=== PATIENT | female | born 1990 | race Caucasian/White ===

== ENCOUNTER 2017-04-08 17:06 | Inpatient (IN) ==
[2017-04-08] MEDS ORDERED: METOCLOPRAMIDE 10 MG/2 ML VIAL IV ONE (18:41)
[2017-04-08] MEDS ORDERED: METOCLOPRAMIDE 10 MG/2 ML VIAL ONE (18:49)
--- NOTE | 2017-04-08 19:13 | XRay Report ---
CLINICAL INFORMATION: Nausea and vomiting COMPARISON: None. FINDINGS:The heart size, mediastinum and pulmonary vessels are unremarkable. The lungs are clear. There are no effusions. The bones and soft tissues are within normal limits. IMPRESSION: Normal chest. Interpreted and Authenticated by: Thomas Martin 04/08/17
[2017-04-08] MEDS ORDERED: MAGNESIUM HYDROXIDE 30 ML ORAL.SUSP PO PRN (19:20)
[2017-04-08] MEDS ORDERED: ACETAMINOPHEN 325 MG TABLET PO PRN (19:20)
[2017-04-08] MEDS ORDERED: DEXTROSE 31 GM ORAL.SUSP PO PRN (19:24)
[2017-04-08] MEDS: HYDROmorphone 2 MG/ML SYRINGE IV PRN (19:37)
[2017-04-08] MEDS ORDERED: HYDROmorphone 2 MG/ML SYRINGE ONE (19:37)
[2017-04-08] MEDS: 0.9 % SODIUM CHLORIDE 1,000 ML IV SCH (19:37)
[2017-04-08] MEDS: ONDANSETRON 4 MG/2 ML VIAL IV PRN (19:46)
[2017-04-08] MEDS ORDERED: ONDANSETRON 4 MG/2 ML VIAL ONE (19:49)
[2017-04-08 20:01] LABS: Basophils # (Auto) 0 K/mcL (0.0-0.3); Basophils % (Auto) 0.2 % (0.0-2.0); Eosinophils # (Auto) 0.1 K/mcL (0.0-0.7); Eosinophils % (Auto) 0.8 % (0.0-7.0); Granulocytes % (Auto) 85.8 % (38.0-78.0); Lymphocytes % (Auto) 11.8 % (15.5-49.0); Mean Cell Volume 85.6 fL (80.0-100.0); Mean Corpuscular HGB Conc 33.1 g/dL (31.0-36.0); Mean Corpuscular Hemoglobin 28.3 pg (26.0-34.0); Monocytes # (Auto) 0.2 K/mcL (0.1-0.9); Monocytes % (Auto) 1.4 % (1.0-12.0); Platelet Count 402 K/mcL (140-440); RBC 5.22 M/mcL (4.00-5.20); Red Cell Distribution Width 12.1 % (11.5-14.5)
[2017-04-08 20:08] LABS: Beta Hydroxybutyrate 1.01 mmol/L (< 0.27)
[2017-04-08 20:21] LABS: ALT/SGPT 14 U/l (0-40); Albumin 2.8 gm/dL (3.2-5.2); Albumin/Globulin Ratio 0.8 (1.0-2.3); Alkaline Phosphatase 87 U/L (39-117); Bilirubin,Direct < 0.2 mg/dL (0.0-0.3); Blood Urea Nitrogen 43 mg/dl (6-20); Gamma Glutamyl Transpeptidase 15 U/L (5-36); Uric Acid 5.7 mg/dL (2.5-8.0)
[2017-04-08] MEDS ORDERED: 0.9 % SODIUM CHLORIDE 1,000 ML IV ONE (20:41)
[2017-04-08] MEDS ORDERED: INSULIN REGULAR, HUMAN 1 UNIT/0.01 ML UNIT IV ONE (20:43)
--- NOTE | 2017-04-08 20:43 | Nephrology Consult Note ---
History of Present Illness - Reason for Consult Patient information: Note initiated : 04/08/17 at 8:39 pm Service Date, if different from initiated Date: [] Patient: Bianka Camacho 27 y/o F admitted on 04/08/17 for High Blood Sugar. Chief Complaint: [] Consult date: 04/08/17 end stage renal disease Requesting physician: Martin Watkins - Chief Complaint nausea, vomiting - History of Present Illness Patient is a 27 y/o pleasant white female with PMH of ESRD on PD who presented to the ER at [facility] today with nausea, vomiting that started this am The patient received several anti emetics with vicki upton her symptoms, given her medical issues and fact she is on PD she was transferred at [facility] The patient reports of having seafood at a restaurant yesterday, She denies fever, chills. She does have abdominal pain She denies any cloudy fluid from peritoneum no urinary symptoms no diarrhea no cough Patient is on PD uses cycler, prescription of 1.5% dianeal with 1800ml fill volume, treatment time of 8 hrs overnight Review of Systems All systems PM: reviewed and no additional remarkable complaints except as stated (as in HPI) Past History Past medical history: DM type 1 with multiple secondary complications ESRD on PD HTN uncontrolled dyslipidemia Past surgical history: s/p PD cath placement had TCC for HD s/p cardiac cath Past family history: not pertinent Past social history: lives with her no 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 Medications and Allergies Home Medications Medication Instructions Recorded Confirmed Type blood sugar diagnostic strips See Dose Instructions .ROUTE 03/02/16 11/13/16 History .MEDSUPPLY citalopram 20 mg tablet 20 mg PO QDAY tab 03/09/16 11/13/16 History gabapentin 100 mg capsule 100 mg PO TID cap 03/09/16 11/13/16 History furosemide 80 mg tablet 80 mg PO BID 30 Days 05/10/16 11/13/16 Rx losartan 100 mg tablet 100 mg PO QDAY #30 tab 10/24/16 11/13/16 Rx omeprazole magnesium PO 11/13/16 11/13/16 History atorvastatin 40 mg tablet 40 mg PO QDAY 30 Days 11/22/16 Rx calcium acetate 667 mg capsule 1,334 mg PO TID 30 Days 11/22/16 Rx carvedilol 25 mg tablet 25 mg PO BID 90 Days 11/22/16 Rx gentamicin 0.1 % topical ointment 1 applic TOPICAL qday #30 g 11/22/16 Rx amlodipine 10 mg tablet 10 mg PO QDAY #30 tab 03/07/17 Rx cholecalciferol (vitamin D3) 2,000 2,000 unit PO QDAY #30 cap 03/07/17 Rx unit capsule Adult Low Dose Aspirin EC 81 mg QDAY 04/08/17 04/08/17 History Allergies Allergy/AdvReac Type Severity Reaction Status Date / Time Influenza Virus Vaccines Allergy Severe Anaphylaxis Verified 04/08/17 20:16 insulin glargine AdvReac Mild Seizure Verified 04/08/17 20:16 Exam - Vital Signs Vital signs: Temp Pulse Resp BP Pulse Ox 98.5 F 112 H 20 157/97 96 04/08/17 19:27 04/08/17 20:00 04/08/17 19:27 04/08/17 20:00 04/08/17 20:00 - General Appearance General appearance: appears started age EENT: mucous membranes moist Neck: no JVD Respiratory: clear Cardiology: no rub, rapid rhythm, normal S1, normal S2 Gastrointestinal: no tenderness (pd exite site clean, minimal rash in osvaldo cath area ), no guarding Integumentary: no rash, warm and dry Neurologic: no asterixis, alert and oriented x3 Musculoskeletal: no erythema, no cyanosis Psychiatric: mood/affect appropriate Results - Lab Results 04/08/17 18:47 04/08/17 18:47 Most recent lab results Calcium 8.6 mg/dl (8.6-10.4) 04/08/17 18:47 Phosphorus 2.7 mg/dL (2.7-4.5) 04/08/17 18:47 Magnesium 2.0 mg/dL (1.6-2.5) 04/08/17 18:47 Assessment and Plan (1) ESRD (end stage renal disease) on dialysis Patient will do PD tonight, will continue with home prescription and use 1.5% dianeal as she looks a little volume depleted and is close to her DW Will follow, if any concerns of volume overload overnight please give lasix IV 60mg, will then do a day time dwell to get more fluid off will follow pd fluid studies, low suspicion as PD fluid was clear nausea, vomiting with DKA on IV fluids and insulin, been managed by hospitalist HTN: uncontrolled on presentation now a little better can resume coreg atleast, she is on multiple meds Will follow along appreciate hospitalist help in managing Ms Camacho's medical condition Status: Acute (2) ESRD on peritoneal dialysis Status: Acute
[2017-04-08] MEDS ORDERED: 0.45 % SODIUM CHLORIDE 1,000 ML IV SCH (20:45)
--- NOTE | 2017-04-08 20:55 | Internal Med History&Physical ---
Medical - H&P: HPI Patient information: Note initiated : 04/08/17 at 8:48 pm Service Date, if different from initiated Date: [] Patient: Bianka Camacho 27 y/o F admitted on 04/08/17 for High Blood Sugar. Chief Complaint: [] History of present illness: Ms. Camacho is a 27 year old Female with h/o DM type 1, on insuolin pump,ESRd on Peritoneal Dialysis presents to the hospital from outside ER for elevated glucose and intractable nausea and vomiting. The patient had some sea food last night, and then from around 6AM this morning she has been having abdominal pain, associated with nausea and vomiting. The pain started in the periumbilical region and then radiated upwards, burning type , moderate to severe in intensity, worse with eting better with pain meds and nausea meds. She was seen in the [facility], where blood work revealed mildly elevated wbc, elevated glucose at 777, gap of around 17, mild ketones. The patient was treated with IV fluids, but since there was suspicion of peritonitis , the patient was transferred to [facility] for further management. At [facility], the patient continued to vomit on presentation, which was treated with some reglan. chest x ray is neg, ua is neg, the patient labs show mild DKA , and clinically she is improving. Family at bedside who were updated on the patients condition. 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 Pertinent family history: Family History Other No pertinent family history Medical - H&P: Meds Home Medications Medication Instructions Recorded Confirmed Type blood sugar diagnostic strips See Dose Instructions .ROUTE 03/02/16 11/13/16 History .MEDSUPPLY citalopram 20 mg tablet 20 mg PO QDAY tab 03/09/16 11/13/16 History gabapentin 100 mg capsule 100 mg PO TID cap 03/09/16 11/13/16 History furosemide 80 mg tablet 80 mg PO BID 30 Days 05/10/16 11/13/16 Rx losartan 100 mg tablet 100 mg PO QDAY #30 tab 10/24/16 11/13/16 Rx omeprazole magnesium PO 11/13/16 11/13/16 History atorvastatin 40 mg tablet 40 mg PO QDAY 30 Days 11/22/16 Rx calcium acetate 667 mg capsule 1,334 mg PO TID 30 Days 11/22/16 Rx carvedilol 25 mg tablet 25 mg PO BID 90 Days 11/22/16 Rx gentamicin 0.1 % topical ointment 1 applic TOPICAL qday #30 g 11/22/16 Rx amlodipine 10 mg tablet 10 mg PO QDAY #30 tab 03/07/17 Rx cholecalciferol (vitamin D3) 2,000 2,000 unit PO QDAY #30 cap 03/07/17 Rx unit capsule Adult Low Dose Aspirin EC 81 mg QDAY 04/08/17 04/08/17 History Allergies Allergy/AdvReac Type Severity Reaction Status Date / Time Influenza Virus Vaccines Allergy Severe Anaphylaxis Verified 04/08/17 20:16 insulin glargine AdvReac Mild Seizure Verified 04/08/17 20:16 Medical - H&P: Exam - Constitutional Vitals: Temp Pulse Resp BP Pulse Ox 98.5 F 108 H 20 139/91 96 04/08/17 19:27 04/08/17 20:15 04/08/17 19:27 04/08/17 20:15 04/08/17 20:15 Exam: GENERAL: The patient is a well-developed, well-nourished in no apparent distress. Is a bit drowsy but oriented x3. VITAL SIGNS: Reviewed and as noted elsewhere. HEENT: Head is normocephalic and atraumatic. Extraocular muscles are intact. Pupils are equal, round, and reactive to light. Nares appeared normal. Mouth appears any without lesions. Mucous membranes are dry. NECK: Normal to inspection, Supple, No lymphadenopathy or thyromegaly. LUNGS: Air entry equal on both sides, no wheezing, crackles or rhonchi noted. No accessory muscles of respiration HEART: Regular rate and rhythm normal, S1 and S2 heard, no Gallop, S3 or Rub Noted, No Gross murmur heard. ABDOMEN: Soft, mild diffuse tenderness, and nondistended. Positive bowel sounds. No hepatosplenomegaly was noted. EXTREMITIES: No cyanosis, clubbing, rash, lesions or edema. NEUROLOGIC: Cranial nerves II through XII are grossly intact. Motor and Sensory System Grossly Intact PSYCHIATRIC: Normal affect, Normal Mood. Appropriate Behavior. SKIN: No ulceration or wounds noted, No jaundice, No rash noted. Medical - H&P: Reslt - Labs CBC & Chem 7: 04/08/17 18:47 04/08/17 18:47 Labs: Short CBC 04/08/17 Range/Units 18:47 WBC 17.3 H (4.5-11.0) K/mcL Hgb 14.8 (12.0-15.0) g/dL Hct 44.7 (36.0-48.0) % Plt Count 402 (140-440) K/mcL BMP 04/08/17 18:47 Sodium 138 Potassium 3.7 Chloride 100 Carbon Dioxide 18 L BUN 43 H Creatinine 3.8 H Glucose 386 H Calcium 8.6 Liver Function 04/08/17 Range/Units 18:47 Total Bilirubin 0.3 (0.0-1.0) mg/dL Direct Bilirubin < 0.2 (0.0-0.3) mg/dL GGT 15 (5-36) U/L AST 17 (0-37) U/l ALT 14 (0-40) U/l Alkaline Phosphatase 87 (39-117) U/L Albumin 2.8 L (3.2-5.2) gm/dL Medical - H&P: A/P - Narrative A/P Narrative: A/P SIRS/ Acute Gastroenteritis : Due to Acute gastroenteritis, likely secondary to sea food consumption. Treat conservatively for now. There is a possibility of perotinitis, PD fluid sent for analysis. Will review and treat appropriately. Diabetic ketoacidosis: Mild Acidosis, patient clinicaly improving, Treat with IV insulin and IV fluids, ABG reviewed, monitor closely, Recheck bmp at midnight. Diabetes: d/c insulin pump while in the hospital, use sliding scale insulin for now. ESRD on PD: Management as per nephrology. 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
[2017-04-08] MEDS ORDERED: traZODone HCL 50 MG TABLET PO PRN (21:00)
[2017-04-08] MEDS ORDERED: INSULIN REGULAR, HUMAN 1 UNIT/0.01 ML UNIT ONE (21:06)
[2017-04-08 22:01] LABS: Nucleated Cel,Peritoneal Fluid 1784 /cumm; RBC,Peritoneal Fluid < 50000 /cumm
[2017-04-08 22:06] LABS: Neutrophils,Peritoneal Fluid 11 %
[2017-04-08] MEDS: 0.9 % SODIUM CHLORIDE 10 ML SYRINGE IV SCH (22:13)
[2017-04-08] MEDS: INSULIN LISPRO 1 UNIT/0.01 ML UNIT SQ SCH (22:20)
[2017-04-09] MEDS ORDERED: VANCOMYCIN PER PHARMACY IV ONE (00:21)
[2017-04-09] MEDS ORDERED: VANCOMYCIN 1,000 MG in 0.9 % SODIUM CHLORIDE 250 ML IV ONE (00:21)
[2017-04-09] MEDS: METOCLOPRAMIDE 10 MG/2 ML VIAL IV PRN (00:29)
[2017-04-09] MEDS: HYDROmorphone 2 MG/ML SYRINGE IV PRN ×2 (00:29→04:07)
[2017-04-09] MEDS ORDERED: CEFEPIME 2 GM in DEXTROSE 5% IN WATER 50 ML IV SCH (00:30)
[2017-04-09 00:39] LABS: Blood Urea Nitrogen 40 mg/dl (6-20)
[2017-04-09] MEDS ORDERED: CEFEPIME 1 GM VIAL ONE (00:41)
[2017-04-09] MEDS ORDERED: VANCOMYCIN 1 GM VIAL ONE (00:41)
[2017-04-09] MEDS ORDERED: POTASSIUM CHLORIDE 40 MEQ in DEXTROSE 5% IN WATER 500 ML IV ONE (00:41)
[2017-04-09] MEDS ORDERED: POTASSIUM CHLORIDE 20 MEQ/10 ML VIAL IV ONE (01:12)
[2017-04-09] MEDS: INSULIN LISPRO 1 UNIT/0.01 ML UNIT SQ SCH ×7 (01:21→21:17)
[2017-04-09] MEDS: ONDANSETRON 4 MG/2 ML VIAL IV PRN (04:07)
[2017-04-09] MEDS: 0.9 % SODIUM CHLORIDE 1,000 ML IV SCH (04:12)
[2017-04-09] MEDS: cloNIDine HCL 0.1 MG TABLET PO PRN (04:32)
[2017-04-09] MEDS ORDERED: cloNIDine HCL 0.1 MG TABLET ONE (04:36)
[2017-04-09] MEDS: 0.9 % SODIUM CHLORIDE 10 ML SYRINGE IV SCH ×3 (05:51→22:10)
[2017-04-09] MEDS ORDERED: VANCOMYCIN PER PHARMACY IV SCH (06:30)
[2017-04-09 07:09] LABS: ALT/SGPT 11 U/l (0-40); Albumin 2.3 gm/dL (3.2-5.2); Albumin/Globulin Ratio 0.9 (1.0-2.3); Alkaline Phosphatase 59 U/L (39-117); Bilirubin,Direct < 0.2 mg/dL (0.0-0.3); Blood Urea Nitrogen 38 mg/dl (6-20); Gamma Glutamyl Transpeptidase 11 U/L (5-36); Magnesium 1.6 mg/dL (1.6-2.5); Uric Acid 5.1 mg/dL (2.5-8.0)
[2017-04-09] MEDS ORDERED: INSULIN REGULAR, HUMAN 1 UNIT/0.01 ML UNIT IV ONE (07:26)
[2017-04-09] MEDS ORDERED: CEFEPIME IV SCH (07:30)
[2017-04-09] MEDS ORDERED: SODIUM CHLORIDE 0.9% IV SCH (07:30)
[2017-04-09 07:42] LABS: Basophils # (Auto) 0 K/mcL (0.0-0.3); Basophils % (Auto) 0.2 % (0.0-2.0); Eosinophils # (Auto) 0 K/mcL (0.0-0.7); Eosinophils % (Auto) 0 % (0.0-7.0); Lymphocytes # (Auto) 2.2 K/mcL (1.5-4.8); Lymphocytes % (Auto) 12.4 % (15.5-49.0); Mean Cell Volume 86.7 fL (80.0-100.0); Mean Corpuscular HGB Conc 33.7 g/dL (31.0-36.0); Mean Corpuscular Hemoglobin 29.2 pg (26.0-34.0); Monocytes % (Auto) 5.4 % (1.0-12.0); Platelet Count 400 K/mcL (140-440); RBC 3.88 M/mcL (4.00-5.20); Red Cell Distribution Width 12.7 % (11.5-14.5)
[2017-04-09] MEDS: 0.45 % SODIUM CHLORIDE 1,000 ML IV SCH ×4 (08:30→23:32)
[2017-04-09] MEDS ORDERED: GENTAMICIN CRM 0.1% TUBE 15GM TOPICAL ONE (11:03)
[2017-04-09] MEDS ORDERED: ceFAZolin 1 GM VIAL IP ONE (11:03)
[2017-04-09] MEDS: INSULIN GLARGINE, HUMAN 1 UNIT/0.01 ML SQ SCH ×2 (12:53→21:17)
--- NOTE | 2017-04-09 16:43 | Nephrology Progress Note ---
Subjective Patient information: Note initiated : 04/09/17 at 4:39 pm Service Date, if different from initiated Date: [] Patient: Bianka Camacho 27 y/o F admitted on 04/08/17 for High Blood Sugar. Chief Complaint: [] Principal diagnosis: pD PERIONITIS Interval history: Patient seen this am she did have some nausea early am though feels a lot better c/o some LE swelling, no SOB, CP, dizziness no abdominal pain no urinary issues did PD last night, had 131cc net UF, no pain or complaints with PD Pertinent ROS: Documented above Objective - Vital Signs Vital signs: Vital Signs Temp Pulse Pulse Resp BP Pulse Ox 04/09/17 12:00 97.5 F 90 20 163/99 100 04/09/17 08:00 98.1 F 93 H 90 16 158/94 95 04/09/17 05:07 105 H 157/91 04/09/17 04:30 126 H 167/114 04/09/17 03:55 99.2 F H 134 H 20 212/101 99 04/08/17 23:20 98.6 F 104 H 16 165/94 96 04/08/17 20:15 108 H 139/91 96 04/08/17 20:00 112 H 157/97 96 04/08/17 19:45 118 H 176/120 99 04/08/17 19:27 98.5 F 115 H 20 205/127 98 04/08/17 18:27 98.0 F 116 H 28 H 179/120 100 Intake and Output 04/09/17 04/09/17 04/09/17 05:59 13:59 21:59 Intake Total 1080 / 1080 975 / 975 Output Total 40 / 40 Balance 1040 / 1040 975 / 975 Intake: IV 1000 / 1000 975 / 975 Sodium Chloride 0.45% 1, 1000 / 1000 975 / 975 000 ml @ 150 mls/hr IV . Q6H40M [facility] Rx#:[id number] Oral 80 / 80 Output: Emesis 40 / 40 Other: Weight 152 lb 8 oz Patient Weight 04/10/17 05:59 Weight 152 lb 8 oz Intake & Output: Intake & Output 04/09/17 04/09/17 04/09/17 05:59 13:59 21:59 Intake Total 1080 / 1080 975 / 975 Output Total 40 / 40 Balance 1040 / 1040 975 / 975 Weight 152 lb 8 oz Intake: IV 999 / 999 975 / 975 Sodium Chloride 0.45% 1, 999 / 1000 975 / 975 000 ml @ 150 mls/hr IV . Q6H40M [facility] Rx#:[id number] Oral 80 / 80 Output: Emesis 40 / 40 - General Appearance General appearance: appears started age EENT: mucous membranes moist Neck: no JVD Respiratory: clear Cardiology: no rub, edema, normal S1, normal S2 Gastrointestinal: no tenderness, no guarding Integumentary: warm and dry Neurologic: no asterixis, alert and oriented x3 Musculoskeletal: no erythema, no cyanosis Psychiatric: mood/affect appropriate - Lab 04/09/17 05:10 04/09/17 05:10 Most recent lab results Calcium 7.7 mg/dl (8.6-10.4) L 04/09/17 05:10 Phosphorus 3.6 mg/dL (2.7-4.5) 04/09/17 05:10 Magnesium 1.6 mg/dL (1.6-2.5) 04/09/17 05:10 Assessment and Plan (1) ESRD (end stage renal disease) on dialysis PD to be done tonight, will use alternate 1.5% AND 2.5% DIANEAL WITH 2200ml volume total 3 cycles over 8 hrs she will get a manual dwell for 6 hrs with antibiotic for her peritonitis she has already received vanc and cefepime last night will follow the culture and de escalate if possible HTN uncontrolled willr esume home meds DM typ 1 uncontrolled on insulin been managed by hospitalist DKA resolved Will follow along appreciate hospitalist help in managing this pt Status: Acute (2) ESRD on peritoneal dialysis Status: Acute
[2017-04-09] MEDS: CARVEDILOL 12.5 MG TABLET PO SCH (17:24)
[2017-04-09] MEDS: CALCIUM ACETATE 667 MG CAPSULE PO SCH (17:24)
--- NOTE | 2017-04-09 19:07 | Internal Med Progress Note ---
Medical - PN: Subj Patient information: Note initiated : 04/09/17 at 7:04 pm Service Date, if different from initiated Date: [] Patient: Bianka Camacho a 27 y/o F admitted on 04/08/17 for High Blood Sugar. Chief Complaint: [] Interval history: Ms. Camacho is a 27 year old Female with h/o DM type 1, on insuolin pump,ESRd on Peritoneal Dialysis presents to the hospital from outside ER for elevated glucose and intractable nausea and vomiting. The patient had some sea food last night, and then from around 6AM this morning she has been having abdominal pain, associated with nausea and vomiting. The pain started in the periumbilical region and then radiated upwards, burning type , moderate to severe in intensity, worse with eting better with pain meds and nausea meds. She was seen in the [facility] ED, where blood work revealed mildly elevated wbc, elevated glucose at 777, gap of around 17, mild ketones. The patient was treated with IV fluids, but since there was suspicion of peritonitis , the patient was transferred to [facility] for further management. At [facility], the patient continued to vomit on presentation, which was treated with some reglan. chest x ray is neg, ua is neg, the patient labs show mild DKA , and clinically she is improving. Family at bedside who were updated on the patients condition. 04/09 patient seen and examined, doing much better today. His hyperglycemic, but anion gap is closed. We'll start the patient on Lantus 10 units twice a day. Start the patient on carb restricted diet. The peritoneal fluid reviewed, has elevated count, and neutrophils are less than 50%. Patient has been started on vancomycin and cefepimefor potential peritonitis. We are awaiting the cultures. At this time. Nephrology is following. The patient has burning pain in the epigastric region beyond that She has no other complaints.. Pertinent ROS: Denies headache, dizziness Denies chest pain, palpitations Denies cough or shortness of breath present abdominal pain burning, No nausea or vomiting. - Constitutional Vitals: Vital Signs Temp Pulse Resp BP Pulse Ox 97.5 F 90 20 163/99 100 04/09/17 12:00 04/09/17 12:04/09/17 12:04/09/17 12:04/09/17 12:00 Period Temp Pulse Resp BP Sys/Macias Pulse Ox Last 24 Hr 97.5 F-99.2 F 90-134 16-20 139-212/91-127 95-100 Intake and Output 04/09/17 04/09/17 04/09/17 05:59 13:59 21:59 Intake Total 1080 / 1080 975 / 975 Output Total 40 / 40 Balance 1040 / 1040 975 / 975 Weight 152 lb 8 oz Patient Weight 04/10/17 05:59 Weight 152 lb 8 oz Intake & Output: Intake & Output 04/09/17 04/09/17 04/09/17 05:59 13:59 21:59 Intake Total 1080 / 1080 975 / 975 Output Total 40 / 40 Balance 1040 / 1040 975 / 975 Weight 152 lb 8 oz Intake: IV 1000 / 1000 975 / 975 Sodium Chloride 0.45% 1, 1000 / 1000 975 / 975 000 ml @ 150 mls/hr IV . Q6H40M [facility] Rx#:[id number] Oral 80 / 80 Output: Emesis 40 / 40 Exam: Constitutional; Afebrile, cooperative, alert, not in distress. Eyes- No icterus, , No periorbital swelling Ears- Ext ear normal, hearing normal to conversation. Neck- Midline trachea, supple Respiratory system: Air Entry equal on both sides, No crackles or wheezing, no rhonchi. CVS- Rate rhythm regular, S1,S2 heard, no gallop, no rub. 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 Medical - PN: Obj Da - Labs CBC & Chem 7: 04/09/17 05:10 04/09/17 05:10 Labs: Abnormal Lab Results 04/09/17 04/09/17 04/08/17 05:10 05:10 23:42 WBC 17.5 H RBC 3.88 L Hgb 11.3 L Hct 33.6 L Gran % 82.0 H Lymph % (Auto) 12.4 L Gran # 14.4 H Gage # (Auto) 1.0 H Potassium 3.2 L Carbon Dioxide 19 L Anion Gap BUN 38 H 40 H Creatinine 3.6 H 3.8 H Glucose 385 H 300 H Calcium 7.7 L 7.7 L Lactate Dehydrogenase Total Protein 5.0 L Albumin 2.3 L Albumin/Globulin Ratio 0.9 L Triglycerides 195 H Beta-Hydroxybutyrate 04/08/17 04/08/17 04/08/17 18:47 18:47 18:46 WBC 17.3 H RBC 5.22 H Hgb Hct Gran % 85.8 H Lymph % (Auto) 11.8 L Gran # 14.9 H Gage # (Auto) Potassium Carbon Dioxide 18 L Anion Gap 20.0 H BUN 43 H Creatinine 3.8 H Glucose 386 H Calcium Lactate Dehydrogenase 319 H Total Protein Albumin 2.8 L Albumin/Globulin Ratio 0.8 L Triglycerides 175 H Beta-Hydroxybutyrate 1.01 H Meds: Medications Acetaminophen (Tylenol) 650 mg PO Q6HP PRN PRN Reason: PAIN/FEVER > 101 Amlodipine Besylate (Norvasc) 10 mg PO DAILY [facility] Calcium Acetate (Phoslo) 667 mg PO TIDCC [facility] Last Admin: 04/09/17 17:24 Dose: 667 mg Carvedilol (Coreg) 25 mg PO BIDCC [facility] Last Admin: 04/09/17 17:24 Dose: 25 mg Clonidine HCl (Catapres) 0.1 mg PO Q4HP PRN PRN Reason: Hypertension Last Admin: 04/09/17 04:32 Dose: 0.1 mg Dextrose (Dextrose 50%) 0 ml IV UD PRN PRN Reason: Hypoglycemia Diagnostic Test (Pha) (Accu-Chek) 1 each FS ACHS [facility] Last Admin: 04/09/17 17:21 Dose: 1 each Furosemide (Lasix) 80 mg PO DAILY [facility] Glucose (Insta-Glucose) 15 gm PO PRN PRN PRN Reason: Hypoglycemia Hydromorphone HCl (Dilaudid) 0.5 mg IV Q2HP PRN PRN Reason: Pain Last Admin: 04/09/17 04:07 Dose: 0.5 mg Sodium Chloride (Sodium Chloride 0.45%) 1,000 mls @ 150 mls/hr IV .Q6H40M [facility] Last Admin: 04/09/17 16:26 Dose: 150 mls/hr Cefepime HCl 2 gm/ Sodium (Chloride) 50 mls @ 100 mls/hr IV Q48H [facility] Insulin Glargine (Lantus) 10 unit SQ BID [facility] Last Admin: 04/09/17 12:53 Dose: 10 unit Insulin Human Lispro (Humalog) 0 unit SQ ACHS JUANJOSE PRN Reason: Protocol Last Admin: 04/09/17 17:21 Dose: Not Given Losartan Potassium (Cozaar) 100 mg PO DAILY [facility] Magnesium Hydroxide (Milk Of Magnesia) 30 ml PO DAILYP PRN PRN Reason: Constipation Metoclopramide HCl (Reglan) 5 mg IV Q6HP PRN PRN Reason: Nausea And Vomiting Last Admin: 04/09/17 00:29 Dose: 5 mg Ondansetron HCl (Zofran) 4 mg IV Q4-6HP PRN PRN Reason: Nausea And Vomiting Last Admin: 04/09/17 04:07 Dose: 4 mg Pantoprazole Sodium (Protonix) 40 mg PO QAMAC [facility] Sodium Chloride (Saline Flush) 10 ml IV Q8 [facility] Last Admin: 04/09/17 16:31 Dose: Not Given Trazodone HCl (Desyrel) 25 mg PO HSP PRN PRN Reason: Insomnia Last Admin: 04/08/17 22:20 Dose: 25 mg Vancomycin HCl (Vancomycin Per Pharmacy) 1 order IV UD [facility] Medical - PN: A/P - Time Spent With Patient Total time spent is greater than 50% in coordination of care (as documented) at patient's floor/unit and/or counseling patient: - Narrative A/P Narrative: A/P SIRS/ Acute Gastroenteritis/ peritonitis : elevated wbc, and elevated Nucleated cells on PD fluid, on vanco and cefepime, await cultures. Diabetic ketoacidosis: resiolved, Diabetes: d/c insulin pump while in the hospital, use sliding scale insulin for now, start on lantus 10 bid. At home she needs around 40 units of insulin. ESRD on PD: Management as per nephrology. HAGma and metabolic alkalosis: much better today. DVT prn ambulation, low score for DVT Diet carb restricted. Medical - PN: Qual - VTE Deep Vein Thrombosis/Pulmonary Embolism Present on Admission: No
[2017-04-09] MEDS ORDERED: amLODIPine 5 MG TABLET PO ONE (21:12)
[2017-04-10] MEDS: ONDANSETRON 4 MG/2 ML VIAL IV PRN ×5 (04:15→19:50)
[2017-04-10] MEDS: HYDROmorphone 2 MG/ML SYRINGE IV PRN ×7 (04:15→21:53)
[2017-04-10] MEDS: METOCLOPRAMIDE 10 MG/2 ML VIAL IV PRN ×3 (05:02→17:15)
[2017-04-10] MEDS: 0.45 % SODIUM CHLORIDE 1,000 ML IV SCH (05:27)
[2017-04-10] MEDS: 0.9 % SODIUM CHLORIDE 10 ML SYRINGE IV SCH ×3 (05:31→21:53)
[2017-04-10 05:45] LABS: Basophils # (Auto) 0.1 K/mcL (0.0-0.3); Basophils % (Auto) 0.5 % (0.0-2.0); Eosinophils # (Auto) 0.5 K/mcL (0.0-0.7); Eosinophils % (Auto) 2.7 % (0.0-7.0); Granulocytes % (Auto) 66.9 % (38.0-78.0); Lymphocytes # (Auto) 4.3 K/mcL (1.5-4.8); Lymphocytes % (Auto) 25.3 % (15.5-49.0); Mean Cell Volume 87.1 fL (80.0-100.0); Mean Corpuscular HGB Conc 33.1 g/dL (31.0-36.0); Mean Corpuscular Hemoglobin 28.8 pg (26.0-34.0); Monocytes # (Auto) 0.8 K/mcL (0.1-0.9); Monocytes % (Auto) 4.6 % (1.0-12.0); Platelet Count 264 K/mcL (140-440); RBC 4.25 M/mcL (4.00-5.20); Red Cell Distribution Width 12.7 % (11.5-14.5)
[2017-04-10 06:22] LABS: ALT/SGPT 11 U/l (0-40); Albumin 2.7 gm/dL (3.2-5.2); Alkaline Phosphatase 63 U/L (39-117); Bilirubin,Direct < 0.2 mg/dL (0.0-0.3); Blood Urea Nitrogen 34 mg/dl (6-20); Gamma Glutamyl Transpeptidase 12 U/L (5-36); Magnesium 1.7 mg/dL (1.6-2.5); Uric Acid 4.6 mg/dL (2.5-8.0)
[2017-04-10] MEDS ORDERED: PANTOPRAZOLE 40 MG PACKET PO SCH (07:30)
[2017-04-10] MEDS: INSULIN GLARGINE, HUMAN 1 UNIT/0.01 ML SQ SCH ×2 (08:25→21:32)
[2017-04-10] MEDS: INSULIN LISPRO 1 UNIT/0.01 ML UNIT SQ SCH ×4 (08:29→21:28)
[2017-04-10 08:52] LABS: Vancomycin,Random 19.5 ug/ml
[2017-04-10] MEDS ORDERED: INSULIN GLARGINE, HUMAN 1 UNIT/0.01 ML SQ ONE (10:00)
[2017-04-10 10:25] LABS: Amylase 70 U/L (28-100); Lipase 50 U/L (7-60)
[2017-04-10] MEDS: CARVEDILOL 12.5 MG TABLET PO SCH ×2 (11:29→17:57)
[2017-04-10] MEDS: CALCIUM ACETATE 667 MG CAPSULE PO SCH ×3 (11:29→17:57)
[2017-04-10] MEDS: FUROSEMIDE 80 MG TABLET PO SCH (11:29)
[2017-04-10] MEDS: LOSARTAN 50 MG TABLET PO SCH (11:29)
[2017-04-10] MEDS: amLODIPine 10 MG TABLET PO SCH (11:29)
--- NOTE | 2017-04-10 11:56 | Ultrasound Report ---
CLINICAL INFORMATION: Abdominal pain nausea and vomiting COMPARISON: None. FINDINGS: Exam is suboptimal due to patient body habitus and inability to follow instructions (breath-holding etc.) Liver is normal in size and echotexture and grossly normal. Gallbladder and bile ducts are normal CBD is 3 mm. The spleen, aorta, IVC and pancreas are poorly visualized, but show no gross abnormality. Both kidneys are mildly atrophic: the right is 9 x 5 cm and the left is 8 x 6 cm. No free fluid IMPRESSION: Mild atrophy in both kidneys otherwise normal limited exam. Please see above. Consider abdomen and pelvic CT Interpreted and Authenticated by: Thomas Martin 04/10/17
[2017-04-10 12:47] LABS: ALT/SGPT 10 U/l (0-40); Albumin 2.8 gm/dL (3.2-5.2); Albumin/Globulin Ratio 0.9 (1.0-2.3); Alkaline Phosphatase 72 U/L (39-117); Blood Urea Nitrogen 33 mg/dl (6-20)
[2017-04-10] MEDS ORDERED: PROMETHAZINE 50 MG/ML AMPUL IM ONE (13:34)
[2017-04-10] MEDS ORDERED: POTASSIUM CHLORIDE 40 MEQ in DEXTROSE 5% IN WATER 500 ML IV ONE (13:39)
--- NOTE | 2017-04-10 15:37 | Cat Scan Report ---
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 TECHNIQUE: 2.5 mm helical slices were obtained from the mid heart through the subtrochanteric regions. Following reconstruction, 2.5 mm sagittal, coronal and axial reformatted images were processed and reviewed at bone, lung and soft tissue windows. FINDINGS: Lung bases show no abnormality - no effusion. The visualized heart is grossly normal. Images should the abdomen show the noncontrasted liver, gallbladder and bile ducts, both adrenal glands, spleen, pancreas and aorta to be normal in size configuration and attenuation a focal lesion. Both kidneys are mildly atrophic and inhomogeneous: The right is 8.9 x 4.5 cm and the left is 8.5 x 4.8 cm. No focal renal lesions. Peritoneal dialysis catheter is seen entering the mesenteric cavity through the right lower quadrant abdominal wall. Catheter was then descends extending across the midline and is coiled in the left false pelvis. There is a small amount of simple ascites - presumably peritoneal dialysate. Images should the pelvis show a 4.8 mm cystic lesion in the right ovary. The uterus is anteflexed and normal in size spanning 7 x 4 cm. Urinary bladder is normal. The stomach, small and large bowel are grossly normal. There is no free air and no abnormally enlarged lymph nodes. Bone windows show no osseous abnormality IMPRESSION: 1. Mild bilateral renal atrophy with inhomogeneous compatible with end-stage renal failure. 2. 4.8 cm cystic lesion on the right ovary. Just pelvic ultrasound for further evaluation 3. Moderate simple ascites presumably peritoneal dialysate Interpreted and Authenticated by: Thomas Martin 04/10/17
--- NOTE | 2017-04-10 16:50 | Nephrology Progress Note ---
Subjective Patient information: Note initiated : 04/10/17 at 4:48 pm Service Date, if different from initiated Date: [] Patient: Bianka Camacho 27 y/o F admitted on 04/08/17 for High Blood Sugar. Chief Complaint: [] Principal diagnosis: pD PERIONITIS Interval history: continues to have nausea, vomiting labs, abdominal imaging negative, pancreatitis ruled out no SOB, CP, dizziness No concerns with PD Pertinent ROS: ABOVE Objective - Vital Signs Vital signs: Vital Signs Temp Pulse Resp BP BP Pulse Ox 04/10/17 12:00 98.0 F 16 174/118 98 04/10/17 10:22 97.8 F 154/90 04/10/17 08:00 97.9 F 16 147/94 97 04/10/17 03:30 98.6 F 87 16 151/97 99 04/09/17 23:35 98.1 F 90 16 149/83 96 04/09/17 20:00 98.5 F 86 20 155/91 95 Intake and Output 04/10/17 04/10/17 04/10/17 05:59 13:59 21:59 Intake Total 1917 Output Total 500 / 500 500 / 500 Balance 1418 / 1418 -500 / -500 Intake: IV 1887 Sodium Chloride 0.45% 1, 1887 000 ml @ 150 mls/hr IV . Q6H40M [facility] Rx#:[id number] Oral 30 / 30 Output: Void Amount 300 / 300 Emesis 200 / 200 500 / 500 Other: # Voids 1 # Emeses 2 Intake & Output: Intake & Output 04/10/17 04/10/17 04/10/17 05:59 13:59 21:59 Intake Total 1917 Output Total 500 / 500 500 / 500 Balance 1418 / 1418 -500 / -500 Intake: IV 1887 Sodium Chloride 0.45% 1, 1887 / 1887 000 ml @ 150 mls/hr IV . Q6H40M [facility] Rx#:[id number] Oral 30 / 30 Output: Void Amount 300 / 300 Emesis 200 / 200 500 / 500 Other: # Voids 1 # Emeses 2 - General Appearance General appearance: appears started age, chronically ill EENT: mucous membranes moist Neck: no JVD Respiratory: clear Cardiology: no rub, normal S1, normal S2 Gastrointestinal: no tenderness, no guarding Integumentary: no rash, warm and dry Neurologic: alert and oriented x3 Musculoskeletal: no erythema, no cyanosis Psychiatric: mood/affect appropriate - Lab 04/10/17 04:52 04/10/17 11:55 Most recent lab results Calcium 8.1 mg/dl (8.6-10.4) L 04/10/17 11:55 Phosphorus 3.5 mg/dL (2.7-4.5) 04/10/17 04:52 Magnesium 1.7 mg/dL (1.6-2.5) 04/10/17 04:52 Assessment and Plan (1) ESRD (end stage renal disease) on dialysis PD to be done tonight, will use 1.5% DIANEAL WITH 2200ml volume total 3 cycles over [address] with cefepime and vanc for possible pd peritonitis will follow along HTN a little better DM typ 1 uncontrolled on insulin been managed by hospitalist DKA resolved refractory nausea vomiting with negative work up consider GI opinion malnutrition: will add nepro if she can tolerate, she has not tolerated protein drinks, nausea, vomiting is not helping Will follow along appreciate hospitalist help in managing this pt Status: Acute (2) ESRD on peritoneal dialysis Status: Acute
[2017-04-10] MEDS: PANTOPRAZOLE 40 MG VIAL IV SCH (17:25)
[2017-04-10] MEDS: ERYTHROMYCIN LACTOBIONATE 250 MG in 0.9 % SODIUM CHLORIDE 100 ML IV SCH (18:06)
--- NOTE | 2017-04-10 18:09 | Internal Med Progress Note ---
Medical - PN: Subj Patient information: Note initiated : 04/10/17 at 6:06 pm Service Date, if different from initiated Date: [] Patient: Bianka Camacho a 27 y/o F admitted on 04/08/17 for High Blood Sugar. Chief Complaint: [] Interval history: Ms. Camacho is a 27 year old Female with h/o DM type 1, on insuolin pump,ESRd on Peritoneal Dialysis presents to the hospital from outside ER for elevated glucose and intractable nausea and vomiting. The patient had some sea food last night, and then from around 6AM this morning she has been having abdominal pain, associated with nausea and vomiting. The pain started in the periumbilical region and then radiated upwards, burning type , moderate to severe in intensity, worse with eting better with pain meds and nausea meds. She was seen in the [facility], where blood work revealed mildly elevated wbc, elevated glucose at 777, gap of around 17, mild ketones. The patient was treated with IV fluids, but since there was suspicion of peritonitis , the patient was transferred to [facility] for further management. At [facility], the patient continued to vomit on presentation, which was treated with some reglan. chest x ray is neg, ua is neg, the patient labs show mild DKA , and clinically she is improving. Family at bedside who were updated on the patients condition. 04/09 patient seen and examined, doing much better today. His hyperglycemic, but anion gap is closed. We'll start the patient on Lantus 10 units twice a day. Start the patient on carb restricted diet. The peritoneal fluid reviewed, has elevated count, and neutrophils are less than 50%. Patient has been started on vancomycin and cefepimefor potential peritonitis. We are awaiting the cultures. At this time. Nephrology is following. The patient has burning pain in the epigastric region beyond that She has no other complaints.. 04/10 patient seen and examined. Overnight events reviewed, patient's condition worsened again this morning. She has been vomiting excessively throughout the day. She has abdominal pain and retching. Her labs showed that she had been hyperglycemic, had some elevated command But normal hydroxybutyrate. The patient has been on Reglan 10 mg every 6 hours as well as Zofran 4 mg when necessary. Phenergan 12.5. Also did not some to help. At this point, I will start the patient on IV erythromycin with the presumption of diabetic gastroparesis. Ultrasound of the abdomen was not a very good imaging study, but did not reveal any acute pathology. CT scan of the abdomen and pelvis without contrast did not reveal any pathology to explain the abdominal pain and nausea, vomiting. The working diagnosis at this point is still acute gastroenteritis secondary to consumption of fish food. Alternatively, she may have diabetic gastroparesis. I will talk with Dr. DAWSON tomorrow to see if an EGD can be arranged. Patient's mother and at bedside, updated about the plan of care. Pertinent ROS: patient denies any fever or chills. Denies any chest pain or shortness breath. Has abdominal pain, nausea and vomiting that has been intractable. - Constitutional Vitals: Vital Signs Temp Pulse Resp BP Pulse Ox 97.7 F 87 16 150/93 97 04/10/17 16:00 04/10/17 03:30 04/10/17 12:00 04/10/17 16:00 04/10/17 16:00 Period Temp Pulse Resp BP Sys/Macias Pulse Ox Last 24 Hr 97.7 F-98.6 F 86-90 16-20 147-174/83-118 95-99 Intake and Output 04/10/17 04/10/17 04/10/17 05:59 13:59 21:59 Intake Total 1917 Output Total 500 / 500 500 / 500 Balance 1418 / 1418 -500 / -500 Intake & Output: Intake & Output 04/10/17 04/10/17 04/10/17 05:59 13:59 21:59 Intake Total 1917 Output Total 500 / 500 500 / 500 Balance 1418 / 1418 -500 / -500 Intake: IV 1887 / 188 Sodium Chloride 0.45% 1, 1887 / 188 000 ml @ 150 mls/hr IV . Q6H40M [facility] Rx#:[id number] Oral 30 30 Output: Void Amount 300 / 300 Emesis 200 / 200 500 / 500 Other: # Voids 1 # Emeses 2 Exam: Constitutional; Afebrile, cooperative, alert, not in distress. Eyes- No icterus, , No periorbital swelling Ears- Ext ear normal, hearing normal to conversation. Neck- Midline trachea, supple Respiratory system: Air Entry equal on both sides, No crackles or wheezing, no rhonchi. CVS- Rate rhythm regular, S1,S2 heard, no gallop, no rub. Abdomen- pt was vomiing did nto allow exam [employer]- AOOx3, moving all extremities, no gross focal deficit noted. Medical - PN: Obj Da - Labs CBC & Chem 7: 04/10/17 04:52 04/10/17 11:55 Labs: Abnormal Lab Results 04/10/17 04/10/17 04/10/17 11:55 04:52 04:52 WBC 17.2 H RBC Hgb Hct Gran % Lymph % (Auto) Gran # 11.5 H [place] # (Auto) Potassium 3.1 L Carbon Dioxide 19 L Anion Gap 18.0 H BUN 33 H 34 H Creatinine 3.9 H 3.8 H Glucose 185 H 333 H Calcium 8.1 L 7.9 L Lactate Dehydrogenase Total Protein 5.8 L 5.4 L Albumin 2.8 L 2.7 L Albumin/Globulin Ratio 0.9 L Triglycerides 304 H Beta-Hydroxybutyrate 04/09/17 04/09/17 04/08/17 05:10 05:10 23:42 WBC 17.5 H RBC 3.88 L Hgb 11.3 L Hct 33.6 L Gran % 82.0 H Lymph % (Auto) 12.4 L Gran # 14.4 H [place] # (Auto) 1.0 H Potassium 3.2 L Carbon Dioxide 19 L Anion Gap BUN 38 H 40 H Creatinine 3.6 H 3.8 H Glucose 385 H 300 H Calcium 7.7 L 7.7 L Lactate Dehydrogenase Total Protein 5.0 L Albumin 2.3 L Albumin/Globulin Ratio 0.9 L Triglycerides 195 H Beta-Hydroxybutyrate 04/08/17 04/08/17 04/08/17 18:47 18:47 18:46 WBC 17.3 H RBC 5.22 H Hgb Hct Gran % 85.8 H Lymph % (Auto) 11.8 L Gran # 14.9 H [place] # (Auto) Potassium Carbon Dioxide 18 L Anion Gap 20.0 H BUN 43 H Creatinine 3.8 H Glucose 386 H Calcium Lactate Dehydrogenase 319 H Total Protein Albumin 2.8 L Albumin/Globulin Ratio 0.8 L Triglycerides 175 H Beta-Hydroxybutyrate 1.01 H Meds: Medications Acetaminophen (Tylenol) 650 mg PO Q6HP PRN PRN Reason: PAIN/FEVER > 101 Amlodipine Besylate (Norvasc) 10 mg PO DAILY [facility] Last Admin: 04/10/17 11:29 Dose: Not Given Calcium Acetate (Phoslo) 667 mg PO TIDCC [facility] Last Admin: 04/10/17 17:57 Dose: Not Given Carvedilol (Coreg) 25 mg PO BIDCC [facility] Last Admin: 04/10/17 17:57 Dose: Not Given Clonidine HCl (Catapres) 0.1 mg PO Q4HP PRN PRN Reason: Hypertension Last Admin: 04/09/17 04:32 Dose: 0.1 mg Dextrose (Dextrose 50%) 0 ml IV UD PRN PRN Reason: Hypoglycemia Diagnostic Test (Pha) (Accu-Chek) 1 each FS ACHS [facility] Last Admin: 04/10/17 17:25 Dose: 1 each Furosemide (Lasix) 80 mg PO DAILY [facility] Last Admin: 04/10/17 11:29 Dose: Not Given Glucose (Insta-Glucose) 15 gm PO PRN PRN PRN Reason: Hypoglycemia Hydromorphone HCl (Dilaudid) 0.5 mg IV Q2HP PRN PRN Reason: Pain Last Admin: 04/10/17 17:16 Dose: 0.5 mg Cefepime HCl 2 gm/ Sodium (Chloride) 50 mls @ 100 mls/hr IV Q48H [facility] Erythromycin Lactobionate 250 (mg/ Sodium Chloride) 100 mls @ 100 mls/hr IV Q6H [facility] Last Admin: 04/10/17 18:06 Dose: 100 mls/hr Insulin Glargine (Lantus) 15 unit SQ BID [facility] Insulin Human Lispro (Humalog) 0 unit SQ ACHS [facility] PRN Reason: Protocol Last Admin: 04/10/17 17:26 Dose: Not Given Losartan Potassium (Cozaar) 100 mg PO DAILY [facility] Last Admin: 04/10/17 11:29 Dose: Not Given Magnesium Hydroxide (Milk Of Magnesia) 30 ml PO DAILYP PRN PRN Reason: Constipation Metoclopramide HCl (Reglan) 10 mg IV Q6HP PRN PRN Reason: NAUSEA AND VOMITING Last Admin: 04/10/17 17:15 Dose: 10 mg Ondansetron HCl (Zofran) 4 mg IV Q4-6HP PRN PRN Reason: Nausea And Vomiting Last Admin: 04/10/17 15:21 Dose: 4 mg Pantoprazole Sodium (Protonix) 40 mg IV BIDAC [facility] Last Admin: 04/10/17 17:25 Dose: 40 mg Sodium Chloride (Saline Flush) 10 ml IV Q8 [facility] Last Admin: 04/10/17 14:51 Dose: Not Given Trazodone HCl (Desyrel) 25 mg PO HSP PRN PRN Reason: Insomnia Last Admin: 04/08/17 22:20 Dose: 25 mg Vancomycin HCl (Vancomycin Per Pharmacy) 1 order IV UD [facility] Medical - PN: A/P - Time Spent With Patient Total time spent is greater than 50% in coordination of care (as documented) at patient's floor/unit and/or counseling patient: - Narrative A/P Narrative: A/P SIRS/ Acute Gastroenteritis/ peritonitis : elevated wbc, and elevated Nucleated cells on PD fluid, on vanco and cefepime, await cultures. neg so far Nausea and vomiting: due michelle gastroenteritis/ food poisoning vs Diabetic ketoacidosis: resiolved, Diabetes: d/c insulin pump while in the hospital, use sliding scale insulin for now, increase lantus 15 bid. ESRD on PD: Management as per nephrology. HAGma and metabolic alkalosis: intermittent, neg betahydroxybutyrate. DVT prn ambulation, low score for DVT Diet carb restricted. Medical - PN: Qual - VTE Deep Vein Thrombosis/Pulmonary Embolism Present on Admission: No
[2017-04-10] MEDS: cloNIDine HCL 0.1 MG TABLET PO PRN (19:44)
[2017-04-11] MEDS: HYDROmorphone 2 MG/ML SYRINGE IV PRN ×5 (00:07→10:20)
[2017-04-11] MEDS: ONDANSETRON 4 MG/2 ML VIAL IV PRN ×3 (00:08→09:23)
[2017-04-11] MEDS: ERYTHROMYCIN LACTOBIONATE 250 MG in 0.9 % SODIUM CHLORIDE 100 ML IV SCH ×5 (01:17→20:00)
[2017-04-11 06:07] LABS: Basophils # (Auto) 0.1 K/mcL (0.0-0.3); Basophils % (Auto) 0.4 % (0.0-2.0); Eosinophils # (Auto) 0.1 K/mcL (0.0-0.7); Eosinophils % (Auto) 0.5 % (0.0-7.0); Granulocytes % (Auto) 67.5 % (38.0-78.0); Lymphocytes # (Auto) 3.9 K/mcL (1.5-4.8); Lymphocytes % (Auto) 24.3 % (15.5-49.0); Mean Cell Volume 85.4 fL (80.0-100.0); Monocytes # (Auto) 1.2 K/mcL (0.1-0.9); Monocytes % (Auto) 7.3 % (1.0-12.0); Platelet Count 432 K/mcL (140-440); RBC 4.11 M/mcL (4.00-5.20)
[2017-04-11 06:23] LABS: ALT/SGPT 8 U/l (0-40); Albumin 2.6 gm/dL (3.2-5.2); Alkaline Phosphatase 60 U/L (39-117); Bilirubin,Direct < 0.2 mg/dL (0.0-0.3); Blood Urea Nitrogen 32 mg/dl (6-20); Gamma Glutamyl Transpeptidase 12 U/L (5-36); Magnesium 1.6 mg/dL (1.6-2.5); Uric Acid 4.8 mg/dL (2.5-8.0)
[2017-04-11] MEDS: 0.9 % SODIUM CHLORIDE 10 ML SYRINGE IV SCH ×3 (07:11→20:17)
[2017-04-11] MEDS: INSULIN LISPRO 1 UNIT/0.01 ML UNIT SQ SCH ×4 (07:44→21:06)
[2017-04-11] MEDS: INSULIN GLARGINE, HUMAN 1 UNIT/0.01 ML SQ SCH ×2 (07:48→21:06)
[2017-04-11] MEDS: LOSARTAN 50 MG TABLET PO SCH (07:49)
[2017-04-11] MEDS: PANTOPRAZOLE 40 MG VIAL IV SCH ×2 (07:49→20:00)
[2017-04-11] MEDS: CALCIUM ACETATE 667 MG CAPSULE PO SCH ×3 (07:49→20:15)
[2017-04-11] MEDS: amLODIPine 10 MG TABLET PO SCH (07:50)
[2017-04-11] MEDS: CARVEDILOL 12.5 MG TABLET PO SCH ×2 (07:50→20:14)
[2017-04-11] MEDS: FUROSEMIDE 80 MG TABLET PO SCH (07:50)
--- NOTE | 2017-04-11 08:55 | Internal Medicine Consult Note ---
Medical - CN: HPI - Data of Consult Consult date: 04/11/17 Requesting Physician: Martin Watkins Primary Care Provider: Titus Esposito; Dr. Keith; Dr. Altman Family Provider: Ttius Esposito - Consult Narrative Reason for consult: Nausea and vomiting History of present illness: Ms. Camacho is a 27 year old F white type 1 insulin dependent diabetic with end stage renal disease on peritoneal dialysis, diabetic retinopathy and diabetic neuropathy who was hospitalized 04/08/17 for acute onset nausea and vomiting. She mentions she had a similar episode of n/v 2 weeks ago, which she believed was the "stomach flu" as close contacts were also ill and has felt "carsick" and nauseated since that time. She has been struggling with glycemic control for the last several weeks. On 04/07, she ate some seafood and then awoke at 6am abruptly with nausea and vomiting. She has not had any diarrhea. She had abdominal pain and and was transferred to [facility] due to concerns about peritonitis. She was started on cefepime and vancomycin but fortunately peritoneal dialysis fluid culture did not show any growth after 2 days. Until last evening, she would have frequent bilious emesis up to every 20 minutes despite a regimen of IV metoclopramine, ondansetron and promethazine. She has been started on IV erythromycin and given IV dilaudid with significant improvement in her symptoms. She has not had any hematemesis but complains of dyspepsia and heartburn. She has a history of chronic migraine and admits she has headache about 3 times weekly. She usually treats this with acetaminophen. She does not use NSAIDS. She has not been tried on a migraine prophylaxis regimen. She had leukocytosis on admission at 17.6 with a predominance of granulocytes, but this has decreased to WBC 16. CT A/P without contrast was unremarkable aside from a benign appearing right ovarian cyst and atrophic kidneys. Abdominal US was also unremarkable. CC: Martin Watkins - Constitutional Constitutional: Present: fever(s), lethargy - Gastrointestinal Gastrointestinal: Absent: diarrhea Medical - CN: PMH Medical history: Positive as above. 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 Functional capacity: independent ambulation Drug use: none Medical - CN: Meds Home Medications Medication Instructions Recorded Confirmed Type blood sugar diagnostic strips See Dose Instructions .ROUTE 03/02/16 04/09/17 History .MEDSUPPLY citalopram 20 mg tablet 20 mg PO QDAY tab 03/09/16 04/09/17 History gabapentin 100 mg capsule 100 mg PO TID cap 03/09/16 04/09/17 History furosemide 80 mg tablet 80 mg PO BID 30 Days 05/10/16 04/09/17 Rx losartan 100 mg tablet 100 mg PO QDAY #30 tab 10/24/16 04/09/17 Rx omeprazole magnesium 1 tab PO DAILY 11/13/16 04/09/17 History atorvastatin 40 mg tablet 40 mg PO QDAY 30 Days 11/22/16 04/09/17 Rx calcium acetate 667 mg capsule 1,334 mg PO TID 30 Days 11/22/16 04/09/17 Rx carvedilol 25 mg tablet 25 mg PO BID 90 Days 11/22/16 04/09/17 Rx gentamicin 0.1 % topical ointment 1 applic TOPICAL qday #30 g 11/22/16 04/09/17 Rx amlodipine 10 mg tablet 10 mg PO QDAY #30 tab 03/07/17 04/09/17 Rx cholecalciferol (vitamin D3) 2,000 2,000 unit PO QDAY #30 cap 03/07/17 04/09/17 Rx unit capsule Adult Low Dose Aspirin EC 81 mg QDAY 04/08/17 04/08/17 History Allergies Allergy/AdvReac Type Severity Reaction Status Date / Time Influenza Virus Vaccines Allergy Severe Anaphylaxis Verified 04/08/17 20:16 insulin glargine AdvReac Mild Seizure Verified 04/08/17 20:16 Medical - CN: Exam - Constitutional Vitals: Temp Pulse Resp BP Pulse Ox 97.8 F 99 H 20 162/92 97 04/11/17 07:21 04/11/17 03:07 04/11/17 07:21 04/11/17 07:21 04/11/17 07:21 General appearance: average body habitus, cooperative - Head Head exam: Present: atraumatic, normal inspection - ENT ENT exam: Present: mucous membranes moist - Neck Neck exam: Absent: lymphadenopathy, thyromegaly - Respiratory Respiratory exam: Present: normal respiratory exam, CTAB - Cardiovascular Cardiovascular exam: Present: normal rate and rhythm Additional comments: chest wall is markedly tender along sternal borders - GI/Abdominal GI/Abdominal exam: Present: normal bowel sounds, soft. Absent: guarding, organomegaly, tenderness - Extremities Exam Extremities exam: Present: pedal edema - Neurological Exam Neurological exam: Present: alert - Psychiatric Psychiatric exam: Present: normal affect, normal mood Medical - CN: Result - Labs CBC & Chem 7: 04/11/17 05:10 04/11/17 05:10 Labs: Short CBC 04/11/17 Range/Units 05:10 WBC 16.0 H (4.5-11.0) K/mcL Hgb 11.9 L (12.0-15.0) g/dL Hct 35.1 L (36.0-48.0) % Plt Count 432 (140-440) K/mcL BMP 04/10/17 04/11/17 11:55 05:10 Sodium 137 138 Potassium 3.1 L 3.8 Chloride 98 99 Carbon Dioxide 24 25 BUN 33 H 32 H Creatinine 3.9 H 4.3 H Glucose 185 H 225 H Calcium 8.1 L 7.9 L Liver Function 04/10/17 04/11/17 Range/Units 11:55 05:10 Total Bilirubin 0.2 < 0.2 (0.0-1.0) mg/dL Direct Bilirubin < 0.2 (0.0-0.3) mg/dL GGT 12 (5-36) U/L AST 15 14 (0-37) U/l ALT 10 8 (0-40) U/l Alkaline Phosphatase 72 60 (39-117) U/L Albumin 2.8 L 2.6 L (3.2-5.2) gm/dL Medical - CN: A/P (1) Nausea & vomiting Status: Acute Assessment and plan: Patient has developed a 2 week history of nausea and vomiting recently exacerbated by suspected infectious gastroenteritis. We will proceed with EGD to further evaluate her symptoms, check for gastric outlet obstruction, etc. She may benefit from initiation of a gastroparesis diet (mostly liquids, small frequent meals) so with her diabetic and renal needs, time signal wirer consult would be prudent. A trial of a prokinetic such a domperidone may prove helpful. Also, a low dose tricylic can also be very helpful in patient with gastroparesis and functional nausea secondary to migraine. Aggressive migraine control should reduce her nausea and vomiting as well. Her chest pain is likely multifactorial , perhaps related to reflux from her frequent vomiting and likely also related to costochondritis, given her chest wall tenderness; a tricylic, such a nortriptyline 10mg nightly, is often helpful for costochondritis complaints as well. (2) Type I diabetes mellitus Status: Chronic
[2017-04-11] MEDS: DEXTROSE 50% 50 ML VIAL IV PRN ×2 (10:51→13:41)
--- NOTE | 2017-04-11 12:58 | Internal Med Progress Note ---
Medical - PN: Subj Patient information: Note initiated : 04/11/17 at 12:56 pm Service Date, if different from initiated Date: [] Patient: Bianka Camacho a 27 y/o F admitted on 04/08/17 for High Blood Sugar. Chief Complaint: [] Interval history: Ms. Camacho is a 27 year old Female with h/o DM type 1, on insuolin pump,ESRd on Peritoneal Dialysis presents to the hospital from outside ER for elevated glucose and intractable nausea and vomiting. The patient had some sea food last night, and then from around 6AM this morning she has been having abdominal pain, associated with nausea and vomiting. The pain started in the periumbilical region and then radiated upwards, burning type , moderate to severe in intensity, worse with eting better with pain meds and nausea meds. She was seen in the [facility], where blood work revealed mildly elevated wbc, elevated glucose at 777, gap of around 17, mild ketones. The patient was treated with IV fluids, but since there was suspicion of peritonitis , the patient was transferred to [facility] for further management. At [facility], the patient continued to vomit on presentation, which was treated with some reglan. chest x ray is neg, ua is neg, the patient labs show mild DKA , and clinically she is improving. Family at bedside who were updated on the patients condition. 04/09 patient seen and examined, doing much better today. His hyperglycemic, but anion gap is closed. We'll start the patient on Lantus 10 units twice a day. Start the patient on carb restricted diet. The peritoneal fluid reviewed, has elevated count, and neutrophils are less than 50%. Patient has been started on vancomycin and cefepimefor potential peritonitis. We are awaiting the cultures. At this time. Nephrology is following. The patient has burning pain in the epigastric region beyond that She has no other complaints.. 04/10 patient seen and examined. Overnight events reviewed, patient's condition worsened again this morning. She has been vomiting excessively throughout the day. She has abdominal pain and retching. Her labs showed that she had been hyperglycemic, had some elevated command But normal hydroxybutyrate. The patient has been on Reglan 10 mg every 6 hours as well as Zofran 4 mg when necessary. Phenergan 12.5. Also did not some to help. At this point, I will start the patient on IV erythromycin with the presumption of diabetic gastroparesis. Ultrasound of the abdomen was not a very good imaging study, but did not reveal any acute pathology. CT scan of the abdomen and pelvis without contrast did not reveal any pathology to explain the abdominal pain and nausea, vomiting. The working diagnosis at this point is still acute gastroenteritis secondary to consumption of fish food. Alternatively, she may have diabetic gastroparesis. I will talk with Dr. DAWSON tomorrow to see if an EGD can be arranged. Patient's mother and at bedside, updated about the plan of care. 04/11: patient seen and examined, overnight events noted, patient's symptoms is wanted to IV Dilaudid as well as possibly some erythromycin. GI was consulted yesterday. Appreciate their input. Domperidone is difficult to get at this point in time. WILL try Reglan at first, and if fails domperidone can be started as an outpatient. We'll start nortriptyline at bedtime. Patient will get EGD scoping today. Advised patient to try and see if she can wean herself off the use of Dilaudid. The patient otherwise is doing well, her glucose level was a bit low this morning. Her dose of Lantus has been cut in half. She remains nothing by mouth for EGD scoping. Nephrology and GI following for management of possible PD related peritonitis as well as intractable nausea and vomiting, likely secondary to diabetic gastroparesis Pertinent ROS: present chest pains due to retching and vomiting Denies cough or shortness of breath present nausea and vomiting and abdominal pain. - Constitutional Vitals: Vital Signs Temp Pulse Resp BP Pulse Ox 97.5 F 98 H 20 144/75 97 04/11/17 12:00 04/11/17 12:00 04/11/17 12:00 04/11/17 12:00 04/11/17 12:00 Period Temp Pulse Resp BP Sys/Macias Pulse Ox Last 24 Hr 97.5 F-98.9 F 98-132 20-20 130-182/75-121 96-98 Intake and Output 04/10/17 04/11/17 04/11/17 21:59 05:59 13:59 Intake Total 100 / 100 150 / 150 Output Total 500 / 500 Balance -400 / -400 150 / 150 Weight 164 lb 8 oz Intake & Output: Intake & Output 04/10/17 04/11/17 04/11/17 21:59 05:59 13:59 Intake Total 100 / 100 150 / 150 Output Total 500 / 500 Balance -400 / -400 150 / 150 Weight 164 lb 8 oz Intake: IV 100 / 100 100 / 100 Erythrocin Lactobionate 100 / 100 100 / 100 250 mg In Sodium Chloride 0.9% 100 ml @ 100 mls/hr IV Q6H [facility] Rx#:[id number] Oral 50 / 50 Output: Void Amount 500 / 500 Exam: Constitutional; Afebrile, cooperative, alert, not in distress. Eyes- No icterus, , No periorbital swelling Ears- Ext ear normal, hearing normal to conversation. Neck- Midline trachea, supple Respiratory system: Air Entry equal on both sides, No crackles or wheezing, no rhonchi. CVS- Rate rhythm regular, S1,S2 heard, no gallop, no rub. Abdomen- Soft nontender abdomen, no organomegaly, no tenderness, no guarding or rigidity, POWER REGULATOR- AOOx3, moving all extremities, no gross focal deficit noted. Medical - PN: Obj Da - Labs CBC & Chem 7: 04/11/17 05:10 04/11/17 05:10 Labs: Abnormal Lab Results 04/11/17 04/11/17 04/10/17 05:10 05:10 11:55 WBC 16.0 H RBC Hgb 11.9 L Hct 35.1 L Gran % Lymph % (Auto) Gran # 10.7 H [place] # (Auto) 1.2 H Potassium 3.1 L Carbon Dioxide Anion Gap BUN 32 H 33 H Creatinine 4.3 H 3.9 H Glucose 225 H 185 H Calcium 7.9 L 8.1 L Lactate Dehydrogenase Total Protein 5.2 L 5.8 L Albumin 2.6 L 2.8 L Albumin/Globulin Ratio 0.9 L Triglycerides 261 H Beta-Hydroxybutyrate 04/10/17 04/10/17 04/09/17 04:52 04:52 05:10 WBC 17.2 H RBC Hgb Hct Gran % Lymph % (Auto) Gran # 11.5 H [place] # (Auto) Potassium Carbon Dioxide 19 L 19 L Anion Gap 18.0 H BUN 34 H 38 H Creatinine 3.8 H 3.6 H Glucose 333 H 385 H Calcium 7.9 L 7.7 L Lactate Dehydrogenase Total Protein 5.4 L 5.0 L Albumin 2.7 L 2.3 L Albumin/Globulin Ratio 0.9 L Triglycerides 304 H 195 H Beta-Hydroxybutyrate 04/09/17 04/08/17 04/08/17 05:10 23:42 18:47 WBC 17.5 H RBC 3.88 L Hgb 11.3 L Hct 33.6 L Gran % 82.0 H Lymph % (Auto) 12.4 L Gran # 14.4 H [place] # (Auto) 1.0 H Potassium 3.2 L Carbon Dioxide 18 L Anion Gap 20.0 H BUN 40 H 43 H Creatinine 3.8 H 3.8 H Glucose 300 H 386 H Calcium 7.7 L Lactate Dehydrogenase 319 H Total Protein Albumin 2.8 L Albumin/Globulin Ratio 0.8 L Triglycerides 175 H Beta-Hydroxybutyrate 04/08/17 04/08/17 18:47 18:46 WBC 17.3 H RBC 5.22 H Hgb Hct Gran % 85.8 H Lymph % (Auto) 11.8 L Gran # 14.9 H [place] # (Auto) Potassium Carbon Dioxide Anion Gap BUN Creatinine Glucose Calcium Lactate Dehydrogenase Total Protein Albumin Albumin/Globulin Ratio Triglycerides Beta-Hydroxybutyrate 1.01 H Meds: Medications Acetaminophen (Tylenol) 650 mg PO Q6HP PRN PRN Reason: PAIN/FEVER > 101 Amlodipine Besylate (Norvasc) 10 mg PO DAILY [facility] Last Admin: 04/11/17 07:50 Dose: 10 mg Calcium Acetate (Phoslo) 667 mg PO TIDCC [facility] Last Admin: 04/11/17 11:14 Dose: Not Given Carvedilol (Coreg) 25 mg PO BIDCC [facility] Last Admin: 04/11/17 07:50 Dose: 25 mg Clonidine HCl (Catapres) 0.1 mg PO Q4HP PRN PRN Reason: Hypertension Last Admin: 04/10/17 19:44 Dose: 0.1 mg Dextrose (Dextrose 50%) 0 ml IV UD PRN PRN Reason: Hypoglycemia Last Admin: 04/11/17 10:51 Dose: 25 ml Diagnostic Test (Pha) (Accu-Chek) 1 each FS ACHS [facility] Last Admin: 04/11/17 11:15 Dose: 1 each Furosemide (Lasix) 80 mg PO DAILY [facility] Last Admin: 04/11/17 07:50 Dose: 80 mg Glucose (Insta-Glucose) 15 gm PO PRN PRN PRN Reason: Hypoglycemia Hydromorphone HCl (Dilaudid) 0.5 mg IV Q2HP PRN PRN Reason: Pain Last Admin: 04/11/17 10:20 Dose: 0.5 mg Cefepime HCl 2 gm/ Sodium (Chloride) 50 mls @ 100 mls/hr IV Q48H [facility] Last Admin: 04/10/17 21:21 Dose: 100 mls/hr Erythromycin Lactobionate 250 (mg/ Sodium Chloride) 100 mls @ 100 mls/hr IV Q6H [facility] Last Admin: 04/11/17 08:07 Dose: 100 mls/hr Insulin Glargine (Lantus) 8 unit SQ BID JUANJOSE Insulin Human Lispro (Humalog) 0 unit SQ ACHS JUANJOSE PRN Reason: Protocol Last Admin: 04/11/17 10:44 Dose: Not Given Losartan Potassium (Cozaar) 100 mg PO DAILY [facility] Last Admin: 04/11/17 07:49 Dose: 100 mg Magnesium Hydroxide (Milk Of Magnesia) 30 ml PO DAILYP PRN PRN Reason: Constipation Metoclopramide HCl (Reglan) 10 mg IV Q6HP PRN PRN Reason: NAUSEA AND VOMITING Last Admin: 04/10/17 17:15 Dose: 10 mg Nortriptyline HCl (Pamelor) 10 mg PO HS [facility] Ondansetron HCl (Zofran) 4 mg IV Q4-6HP PRN PRN Reason: Nausea And Vomiting Last Admin: 04/11/17 09:23 Dose: 4 mg Pantoprazole Sodium (Protonix) 40 mg IV BIDAC [facility] Last Admin: 04/11/17 07:49 Dose: 40 mg Sodium Chloride (Saline Flush) 10 ml IV Q8 [facility] Last Admin: 04/11/17 07:11 Dose: 10 ml Trazodone HCl (Desyrel) 25 mg PO HSP PRN PRN Reason: Insomnia Last Admin: 04/08/17 22:20 Dose: 25 mg Vancomycin HCl (Vancomycin Per Pharmacy) 1 order IV UD [facility] Medical - PN: A/P - Time Spent With Patient Total time spent is greater than 50% in coordination of care (as documented) at patient's floor/unit and/or counseling patient: - Narrative A/P Narrative: A/P SIRS/ Acute Gastroenteritis/ peritonitis : elevated wbc, and elevated Nucleated cells on PD fluid, on vanco and cefepime, await cultures. neg so far, consider repeat Cx sendig workup for fungal elements, atypical bacteria/ mycobacteria. Nausea and vomiting: due michelle gastroenteritis/ food poisoning vs gastroparesis, Appreciate GI input, monitor on IV reglan, IV ondansetron. STart on nortryptline. EGD today. Diabetic ketoacidosis: resiolved, Diabetes: d/c insulin pump while in the hospital, use sliding scale insulin for now, ESRD on PD: Management as per nephrology. HAGMA, and metabolic alkalosis: intermittent, neg betahydroxybutyrate likely from renal failure. Lactic acid is neg. DVT prn ambulation, low score for DVT Diet carb restricted. Medical - PN: Qual - VTE Deep Vein Thrombosis/Pulmonary Embolism Present on Admission: No
[2017-04-11] MEDS ORDERED: KETAMINE 10 MG/ML ML IV PRN (13:36)
[2017-04-11] MEDS ORDERED: DEXTROSE 10 % IN WATER 1,000 ML IV SCH (13:45)
[2017-04-11] MEDS ORDERED: PROPOFOL 200 MG/20 ML VIAL IV SCH (13:45)
[2017-04-11] MEDS ORDERED: MIDAZOLAM 2 MG/2 ML VIAL IV SCH (13:45)
[2017-04-11] MEDS ORDERED: PROPOFOL 20 ML IV ONE (13:49)
[2017-04-11] MEDS ORDERED: MIDAZOLAM 2 MG/2 ML VIAL ONE (13:50)
--- NOTE | 2017-04-11 16:50 | Nephrology Progress Note ---
Subjective Patient information: Note initiated : 04/11/17 at 4:48 pm Service Date, if different from initiated Date: [] Patient: Bianka Camacho 27 y/o F admitted on 04/08/17 for High Blood Sugar. Chief Complaint: [] Principal diagnosis: pD PERIONITIS Interval history: nausea, vomiting better today seen by GI and EGD done no Edema, no SOB, no CP no other issues on antibiotics for PD peritonitis, culture negative Pertinent ROS: as above Objective - Vital Signs Vital signs: Vital Signs Temp Pulse Pulse Resp BP BP BP 04/11/17 15:33 98.5 F 16 147/83 04/11/17 14:15 98 H 19 155/99 04/11/17 14:12 98.7 F 90 16 129/83 04/11/17 14:00 97.5 F 86 20 132/85 04/11/17 12:00 97.5 F 98 H 20 144/75 04/11/17 09:40 97.8 F 162/92 04/11/17 07:21 97.8 F 20 162/92 04/11/17 03:07 98.7 F 99 H 20 159/98 04/11/17 00:00 97.5 F 103 H 20 149/89 04/10/17 20:47 115 H 130/84 04/10/17 19:33 98.9 F 132 H 20 182/121 Pulse Ox 04/11/17 15:33 95 04/11/17 14:15 96 04/11/17 14:12 95 04/11/17 14:00 97 04/11/17 12:00 97 04/11/17 09:40 04/11/17 07:21 97 04/11/17 03:07 96 04/11/17 00:00 98 04/10/17 20:47 04/10/17 19:33 96 Intake and Output 04/11/17 04/11/17 04/11/17 05:59 13:59 21:59 Intake Total 150 / 150 100 / 100 120 / 120 Balance 150 / 150 100 / 100 120 / 120 Intake: IV 100 / 100 100 / 100 Erythrocin Lactobionate 100 / 100 100 / 100 250 mg In Sodium Chloride 0.9% 100 ml @ 100 mls/hr IV Q6H [facility] Rx#:[id number] Oral 50 / 50 120 / 120 Intake & Output: Intake & Output 04/11/17 04/11/17 04/11/17 05:59 13:59 21:59 Intake Total 150 / 150 100 / 100 120 / 120 Balance 150 / 150 100 / 100 120 / 120 Intake: IV 100 / 100 100 / 100 Erythrocin Lactobionate 100 / 100 100 / 100 250 mg In Sodium Chloride 0.9% 100 ml @ 100 mls/hr IV Q6H [facility] Rx#:[id number] Oral 50 / 50 120 / 120 - General Appearance General appearance: appears started age, chronically ill EENT: mucous membranes moist Neck: no JVD Respiratory: clear Cardiology: no rub, no edema, normal S1, normal S2 Gastrointestinal: no tenderness, no guarding Integumentary: no rash, warm and dry Neurologic: no asterixis, alert and oriented x3 Musculoskeletal: no erythema, no cyanosis Psychiatric: mood/affect appropriate - Lab 04/11/17 05:10 04/11/17 05:10 Most recent lab results Calcium 7.9 mg/dl (8.6-10.4) L 04/11/17 05:10 Phosphorus 4.5 mg/dL (2.7-4.5) 04/11/17 05:10 Magnesium 1.6 mg/dL (1.6-2.5) 04/11/17 05:10 Assessment and Plan (1) ESRD (end stage renal disease) on dialysis PD to be done tonight, will use 1.5% DIANEAL WITH 2200ml volume total 3 cycles over [address] with cefepime and vanc for possible pd peritonitis will follow along HTN a little better DM typ 1 uncontrolled on insulin been managed by hospitalist DKA resolved refractory nausea vomiting with negative work up appreciate GI opinion malnutrition: will add nepro if she can tolerate, she has not tolerated protein drinks, nausea, vomiting is not helping Will follow along appreciate hospitalist help in managing this pt Status: Acute (2) ESRD on peritoneal dialysis Status: Acute
[2017-04-11 17:01] LABS: Nucleated Cel,Peritoneal Fluid 441 /cumm; RBC,Peritoneal Fluid < 50000 /cumm
[2017-04-11 19:16] LABS: Neutrophils,Peritoneal Fluid 18 %
[2017-04-11] MEDS ORDERED: ONDANSETRON ODT 4 MG TABLET SL PRN (19:57)
[2017-04-11] MEDS ORDERED: HYDROmorphone 2 MG TABLET PO PRN (19:58)
--- NOTE | 2017-04-11 20:07 | Procedure Note ---
Procedures - EJ/Peripheral Line Other Consent obtained: verbal consent Time out performed: Yes Skin cleansed in sterile fashion: Yes Size: 24 IV secured and dressing applied: Yes Patient tolerated procedure: well (right wrist 24G peripheral line placed )
[2017-04-11] MEDS ORDERED: METOCLOPRAMIDE 10 MG TABLET ONE (20:11)
[2017-04-11] MEDS: METOCLOPRAMIDE 10 MG TABLET PO SCH (20:15)
[2017-04-11] MEDS ORDERED: NORTRIPTYLINE 10 MG CAPSULE PO SCH (21:00)
[2017-04-11] MEDS: CIPROFLOXACIN 500 MG TABLET PO SCH (21:04)
[2017-04-11] MEDS: PANTOPRAZOLE 40 MG TABLET PO SCH (21:04)
[2017-04-12] MEDS: 0.9 % SODIUM CHLORIDE 10 ML SYRINGE IV SCH (05:30)
[2017-04-12] MEDS: PANTOPRAZOLE 40 MG TABLET PO SCH (07:01)
[2017-04-12] MEDS: INSULIN LISPRO 1 UNIT/0.01 ML UNIT SQ SCH ×2 (07:01→11:45)
[2017-04-12] MEDS: METOCLOPRAMIDE 10 MG TABLET PO SCH ×2 (07:01→11:46)
[2017-04-12 07:11] LABS: Vancomycin,Random 10.9 ug/ml
[2017-04-12 07:27] LABS: ALT/SGPT 8 U/l (0-40); Albumin 2.2 gm/dL (3.2-5.2); Albumin/Globulin Ratio 0.8 (1.0-2.3); Alkaline Phosphatase 59 U/L (39-117); Bilirubin,Direct < 0.2 mg/dL (0.0-0.3); Blood Urea Nitrogen 30 mg/dl (6-20); Gamma Glutamyl Transpeptidase 13 U/L (5-36); Magnesium 1.6 mg/dL (1.6-2.5); Uric Acid 5.2 mg/dL (2.5-8.0)
[2017-04-12 07:31] LABS: Basophils # (Auto) 0.1 K/mcL (0.0-0.3); Basophils % (Auto) 0.7 % (0.0-2.0); Eosinophils # (Auto) 0.5 K/mcL (0.0-0.7); Eosinophils % (Auto) 3.7 % (0.0-7.0); Granulocytes % (Auto) 59.1 % (38.0-78.0); Lymphocytes # (Auto) 3.5 K/mcL (1.5-4.8); Lymphocytes % (Auto) 28.4 % (15.5-49.0); Mean Cell Volume 85.8 fL (80.0-100.0); Mean Corpuscular HGB Conc 34.8 g/dL (31.0-36.0); Mean Corpuscular Hemoglobin 29.9 pg (26.0-34.0); Monocytes % (Auto) 8.1 % (1.0-12.0); Platelet Count 341 K/mcL (140-440); RBC 3.81 M/mcL (4.00-5.20); Red Cell Distribution Width 11.9 % (11.5-14.5)
[2017-04-12] MEDS ORDERED: VANCOMYCIN 1,000 MG in 0.9 % SODIUM CHLORIDE 250 ML IV ONE (08:11)
[2017-04-12] MEDS ORDERED: VANCOMYCIN 500 MG VIAL IP SCH (08:45)
[2017-04-12] MEDS: LOSARTAN 50 MG TABLET PO SCH (08:47)
[2017-04-12] MEDS: CALCIUM ACETATE 667 MG CAPSULE PO SCH ×2 (08:48→11:53)
[2017-04-12] MEDS: amLODIPine 10 MG TABLET PO SCH (08:48)
[2017-04-12] MEDS: CARVEDILOL 12.5 MG TABLET PO SCH (08:49)
[2017-04-12] MEDS: FUROSEMIDE 80 MG TABLET PO SCH (08:49)
[2017-04-12] MEDS: INSULIN GLARGINE, HUMAN 1 UNIT/0.01 ML SQ SCH (08:49)
[2017-04-12] MEDS: CIPROFLOXACIN 500 MG TABLET PO SCH (08:49)
--- NOTE | 2017-04-12 13:48 | Discharge Summary ---
Medical - DS: Prov Patient information: Note initiated : 04/12/17 at 1:31 pm Service Date, if different from initiated Date: [] Patient: Bianka Camacho 27 y/o F admitted on 04/08/17 for High Blood Sugar. Chief Complaint: [] Date of admission: 04/08/17 18:18 Discharge date: 04/12/17 Primary care physician: Titus Esposito Admitting clinician: Martin Watkins Discharging clinician: Martin Watkins Medical - DS: Meds - Discharge Medications Prescriptions: Ciprofloxacin [Cipro] 500 mg PO DAILY #10 tablet Metoclopramide [Reglan] 10 mg PO ACHS #40 tablet Nortriptyline [Pamelor] 10 mg PO HS #30 capsule Ondansetron HCl [Zofran ODT] 4 mg SL Q4-6HP PRN #20 tablet PRN Reason: Nausea And Vomiting Pantoprazole [Protonix] 40 mg PO BIDAC #60 tablet Active and Home Medications: Home Medications blood sugar diagnostic strips See Dose Instructions .ROUTE .MEDSUPPLY 03/02/16 [ History Confirmed 04/09/17 Last Taken 04/08/17 12:00] citalopram 20 mg tablet 20 mg PO QDAY tab 03/09/16 [History Confirmed 04/09/17 Last Taken 04/07/17 20:00] gabapentin 100 mg capsule 100 mg PO TID cap 03/09/16 [History Confirmed Last Taken 04/07/17 20:00] furosemide 80 mg tablet 80 mg PO BID 30 Days 05/10/16 [Rx Confirmed 04/09/17 Last Taken 04/07/17 20:00] losartan 100 mg tablet 100 mg PO QDAY #30 tab 10/24/16 [Rx Confirmed 04/09/17 Last Taken 04/07/17 20:00] omeprazole magnesium 1 tab PO DAILY 11/13/16 [History Confirmed 04/09/17 Last Taken 04/07/17 20:00] atorvastatin 40 mg tablet 40 mg PO QDAY 30 Days 11/22/16 [Rx Confirmed 04/09/17 Last Taken 04/07/17 20:00] calcium acetate 667 mg capsule 1,334 mg PO TID 30 Days 11/22/16 [Rx Confirmed Last Taken 08/05/17 20:00] carvedilol 25 mg tablet 25 mg PO BID 90 Days 11/22/16 [Rx Confirmed 04/09/17 Last Taken 04/07/17 20:00] gentamicin 0.1 % topical ointment 1 applic TOPICAL qday #30 g 11/22/16 [Rx Confirmed 04/09/17 Last Taken 04/07/17 20:00] amlodipine 10 mg tablet 10 mg PO QDAY #30 tab 03/07/17 [Rx Confirmed 04/09/17 Last Taken 04/07/17 20:00] cholecalciferol (vitamin D3) 2,000 unit capsule 2,000 unit PO QDAY #30 cap 03/07 [Rx Confirmed 04/09/17 Last Taken 04/07/17 20:00] Adult Low Dose Aspirin EC 81 mg QDAY 04/08/17 [History Confirmed 04/08/17 Last Taken 04/07/17 20:00] Medical - DS: Hosp Hospital course: Ms. Camacho is a 27 year old Female with h/o DM type 1, on insulin pump,ESRD on Peritoneal Dialysis presents to the hospital from outside ER for elevated glucose and intractable nausea and vomiting. The patient had some sea food a night before , and then from around 6AM this morning she has been having abdominal pain, associated with nausea and vomiting. The pain started in the periumbilical region and then radiated upwards , burning type, moderate to severe in intensity, worse with eating better with pain meds and nausea meds. She was seen in the [facility], where blood work revealed mildly elevated wbc, elevated glucose at 777, gap of around 17, mild ketones. The patient was treated with IV fluids, but since there was suspicion of peritonitis, the patient was transferred to [facility] for further management. At [facility], the patient continued to vomit on presentation , which was treated with some reglan. chest x ray is neg, ua is neg. The patient was treated with IV fluids and insulin, this led to improvement in the patient's overall glycemic control. The patient's insulin pump was held while she was inpatient, and glucose was managed while subcutaneous insulin. The patient felt better on day 1 of hospitalization. However, on day 2 of hospitalization for nausea, vomiting returned. She had sustained nausea and vomiting for the entire day. She underwent an ultrasound of the abdomen as well as a CAT scan of the abdomen without contrast, and these findings were unrevealing. She had a ovarian cyst which is a chronic finding for her. GI was consulted, patient underwent an EGD scoping. It is likely that the patient' s symptoms are attribute it to diabetic gastroparesis. She likely has acute gastroparesis and may have had chronic gastroparesis in the past. She was started on nortriptyline. According to GI recommendations. The patient's will be discharged home on Reglan 10 mg before meals at bedtime, Zofran as needed, nortriptyline at bedtime. The patient will have follow-up with GI and her regular doctor upon discharge. There is a concern that the patient may have peritonitis secondary to peritoneal dialysis. The cultures are negative,however, she did have elevated Cells, the patient was initially treated with IV cefepime as well as IV vancomycin. The patient will be discharged home on by mouth ciprofloxacin for 10 days, and she will be getting vancomycin in the peritoneal fluid. Management of vancomycin will be done by the patient's metal patternmaker apprentice. the patient will resume her home dose of insulin when she is discharged, she is being discharged on liquid diet at this time and she will consult diet as tolerated at home. At the time of discharge, patient is hemodynamically stable, glucose levels are reasonable, patient is able to tolerate by mouth diet very well and is ambulatory. Family at bedside who were updated on the patients condition. Discharge diagnosis: DM gastroparesis, Periotitnitis. Hyperglycemia - Time Spent with Patient Total time spent providing and/or coordinating discharge services: Greater than 30 minutes Medical - DS: Exam - Constitutional Vitals: Vital Signs Temp Pulse Pulse Resp BP BP BP 04/12/17 11:43 98.1 F 16 121/84 04/12/17 10:24 98.3 F 04/12/17 07:06 80 16 04/12/17 07:05 98.4 F 16 132/82 04/12/17 04:00 98.4 F 90 14 128/84 04/11/17 23:10 98.4 F 93 H 14 119/76 04/11/17 19:38 98.3 F 99 H 14 157/97 04/11/17 15:33 98.5 F 16 147/83 04/11/17 14:15 98 H 19 155/99 04/11/17 14:12 98.7 F 90 16 129/83 04/11/17 14:00 97.5 F 86 20 132/85 Pulse Ox 04/12/17 11:43 97 04/12/17 10:24 04/12/17 07:06 97 04/12/17 07:05 97 04/12/17 04:00 97 04/11/17 23:10 92 04/11/17 19:38 97 04/11/17 15:33 95 04/11/17 14:15 96 04/11/17 14:12 95 04/11/17 14:00 97 Intake and Output 04/11/17 04/12/17 04/12/17 21:59 05:59 13:59 Intake Total 480 / 480 0 / 0 120 / 120 Balance 480 / 480 0 / 0 120 / 120 Intake: Oral 480 / 480 0 / 0 120 / 120 Other: Meal Nourishment/Supplement Lunch Percent of Meal Consumed 100% 50% Feeding Ability Independent Independent # Voids 1 1 1 Weight 161 lb Additional comments: Constitutional; Afebrile, cooperative, alert, not in distress. Eyes- No icterus, , No periorbital swelling Ears- Ext ear normal, hearing normal to conversation. Neck- Midline trachea, supple Respiratory system: Air Entry equal on both sides, No crackles or wheezing, no rhonchi. CVS- Rate rhythm regular, S1,S2 heard, no gallop, no rub. Abdomen- Soft nontender abdomen, no organomegaly, no tenderness, no guarding or rigidity, HAND WOODWORKING SANDER- AOOx3, moving all extremities, no gross focal deficit noted. Medical - DS: Data Labs on day of discharge: Labs from last 24 hours 04/12/17 04/12/17 04/12/17 11:49 11:48 11:48 WBC RBC Hgb Hct MCV MCH MCHC RDW Plt Count MPV Gran % Lymph % (Auto) Linn % (Auto) Eos % (Auto) Baso % (Auto) Gran # Lymph # (Auto) Linn # (Auto) Eos # (Auto) Baso # (Auto) Sodium Potassium Chloride Carbon Dioxide Anion Gap BUN Creatinine GFR Calculation Glucose Uric Acid Calcium Phosphorus Magnesium Total Bilirubin Direct Bilirubin GGT AST ALT Alkaline Phosphatase Lactate Dehydrogenase Total Protein Albumin Globulin Albumin/Globulin Ratio Triglycerides Fluid Source Pending Fluid Color Pending Fluid Appearance Pending Fluid RBC Pending Fluid Tot Cell Count Pending Fluid Nucleated Cells Pending Fluid Neutrophils Not Reportable Fluid Lymphocytes Not Reportable Fluid Monocytes Not Reportable Fluid Eosinophils Not Reportable Fluid Basophils Not Reportable Fluid Plasma Cells Not Reportable Fluid Macrophages Not Reportable Fld Mesothelial Cells Not Reportable Peritoneal Source Peritoneal Color Peritoneal Appearance Peritoneal RBC Periton Tot Cells Ct Periton Nuc Cells Periton Neutrophils Periton Lymphocytes Peritoneal Monocytes Peritoneal Eosinophils Peritoneal Basophils Periton Mesothelial Periton Macrophages Peritoneal Plasma Cell Peritoneal Other Cells Peritoneal Diff Commnt Peritoneal Tot Protein Pending Peritoneal Glucose Pending Random Vancomycin Vancomycin Dose Vanco Last Dose Time 04/12/17 04/12/17 04/12/17 05:30 05:30 05:30 WBC 12.3 H RBC 3.81 L Hgb 11.4 L Hct 32.6 L MCV 85.8 MCH 29.9 MCHC 34.8 RDW 11.9 Plt Count 341 MPV 10.0 Gran % 59.1 Lymph % (Auto) 28.4 Linn % (Auto) 8.1 Eos % (Auto) 3.7 Baso % (Auto) 0.7 Gran # 7.2 Lymph # (Auto) 3.5 Linn # (Auto) 1.0 H Eos # (Auto) 0.5 Baso # (Auto) 0.1 Sodium 139 Potassium 3.4 Chloride 101 Carbon Dioxide 23 Anion Gap 15.0 BUN 30 H Creatinine 4.6 H GFR Calculation 12 Glucose 138 H Uric Acid 5.2 Calcium 7.7 L Phosphorus 4.3 Magnesium 1.6 Total Bilirubin 0.2 Direct Bilirubin < 0.2 GGT 13 AST 19 ALT 8 Alkaline Phosphatase 59 Lactate Dehydrogenase 248 Total Protein 4.9 L Albumin 2.2 L Globulin 2.7 Albumin/Globulin Ratio 0.8 L Triglycerides 308 H Fluid Source Fluid Color Fluid Appearance Fluid RBC Fluid Tot Cell Count Fluid Nucleated Cells Fluid Neutrophils Fluid Lymphocytes Fluid Monocytes Fluid Eosinophils Fluid Basophils Fluid Plasma Cells Fluid Macrophages Fld Mesothelial Cells Peritoneal Source Peritoneal Color Peritoneal Appearance Peritoneal RBC Periton Tot Cells Ct Periton Nuc Cells Periton Neutrophils Periton Lymphocytes Peritoneal Monocytes Peritoneal Eosinophils Peritoneal Basophils Periton Mesothelial Periton Macrophages Peritoneal Plasma Cell Peritoneal Other Cells Peritoneal Diff Commnt Peritoneal Tot Protein Peritoneal Glucose Random Vancomycin 10.9 Vancomycin Dose Not Reportable Vanco Last Dose Time Not Reportable 04/11/17 04/11/17 15:16 15:16 WBC RBC Hgb Hct MCV MCH MCHC RDW Plt Count MPV Gran % Lymph % (Auto) Linn % (Auto) Eos % (Auto) Baso % (Auto) Gran # Lymph # (Auto) Linn # (Auto) Eos # (Auto) Baso # (Auto) Sodium Potassium Chloride Carbon Dioxide Anion Gap BUN Creatinine GFR Calculation Glucose Uric Acid Calcium Phosphorus Magnesium Total Bilirubin Direct Bilirubin GGT AST ALT Alkaline Phosphatase Lactate Dehydrogenase Total Protein Albumin Globulin Albumin/Globulin Ratio Triglycerides Fluid Source Fluid Color Fluid Appearance Fluid RBC Fluid Tot Cell Count Fluid Nucleated Cells Fluid Neutrophils Fluid Lymphocytes Fluid Monocytes Fluid Eosinophils Fluid Basophils Fluid Plasma Cells Fluid Macrophages Fld Mesothelial Cells Peritoneal Source Peritoneal Cancelled Peritoneal Color P. yellow Cancelled Peritoneal Appearance Clear Cancelled Peritoneal RBC < [address] 100 Cancelled Periton Nuc Cells 441 Cancelled Periton Neutrophils 18 Cancelled Periton Lymphocytes 12 Cancelled Peritoneal Monocytes Not Reportable Cancelled Peritoneal Eosinophils Not Reportable Cancelled Peritoneal Basophils Not Reportable Cancelled Periton Mesothelial Not Reportable Cancelled Periton Macrophages 70 Cancelled Peritoneal Plasma Cell Not Reportable Cancelled Peritoneal Other Cells Not Reportable Cancelled Peritoneal Diff Commnt Not Reportable Cancelled Peritoneal Tot Protein Peritoneal Glucose Random Vancomycin Vancomycin Dose Vanco Last Dose Time Preliminary micro results at discharge 04/11/17 15:16 Body Fluid Culture - Preliminary Peritoneal Fluid Medical - DS: A/P - Patient/Caregiver Discharge Instructions Activity: increase activity as tolerated Diet: Renal/Consistent Carbs Additional Instructions: you have been admitted to the hospital because of possible infection in the periportal, hyperglycemia, and intractable nausea and vomiting. You will need antibiotics for possible infection of approximately 14 days, so you have another 10 days of antibiotics pending. He will take 2 antibiotics, one in the peritoneal fluid and one orally. Please resume your insulin pump once you are home. He is taking her medications as prescribed. Follow-up with gastroenterology in 2 weeks after discharge. Follow-up with nephrology in 3 weeks after discharge. We'll do the emergency if abdominal pain, fever, worsening nausea, vomiting, or any other concerning symptoms. You are presently on a full liquid diet, I would advise you to increase her diet as tolerated. Should her symptoms worsen, go back to a liquid diet, and talk to her parliamentary archivist with regards to further treatment plan. Prescriptions: Ciprofloxacin [Cipro] 500 mg PO DAILY #10 tablet Metoclopramide [Reglan] 10 mg PO ACHS #40 tablet Nortriptyline [Pamelor] 10 mg PO HS #30 capsule Ondansetron HCl [Zofran ODT] 4 mg SL Q4-6HP PRN #20 tablet PRN Reason: Nausea And Vomiting Pantoprazole [Protonix] 40 mg PO BIDAC #60 tablet - Follow up Plan Disposition: Home, Self-Care Prognosis: Fair Rehab Potential: Fair I certify that the patient requires SNF services: No Overall status at discharge: patient is progressing back to baseline Medical - DS: Qual - VTE Deep Vein Thrombosis/Pulmonary Embolism Present on Admission: No
--- NOTE | 2017-04-12 16:15 | Surgical Pathology Report ---
HISTOLOGY SPECIMEN MICROSCOPIC DIAGNOSIS SPECIMEN A - STOMACH, BIOPSY: -- CHRONIC GASTRITIS WITH FOCAL ACTIVITY AND MUCOSAL EROSION. -- ALCIAN YELLOW STAIN IS NEGATIVE FOR HELICOBACTER ORGANISMS (ADEQUATE TECHNICAL CONTROL). -- NO EVIDENCE OF INTESTINAL METAPLASIA, DYSPLASIA, OR MALIGNANCY. SPECIMEN B - ESOPHAGUS, BIOPSY: -- ACUTE EROSIVE ESOPHAGITIS WITH ULCERATION, NUMEROUS INTRAEPITHELIAL NEUTROPHILS, RARE INTRAEPITHELIAL EOSINOPHILS, AND REACTIVE CHANGES. -- PAS STAIN IS NEGATIVE FOR FUNGAL ORGANISMS (ADEQUATE TECHNICAL CONTROL). -- NO GLANDULAR MUCOSA IS PRESENT. -- NO EVIDENCE OF DYSPLASIA OR MALIGNANCY. (SEH:[place]) CLINICAL HISTORY Nausea/vomiting; dyspepsia; abdominal pain. PROCEDURAL IMPRESSION Severe stricture. GROSS DESCRIPTION Specimen A: Received in formalin labeled gastric biopsy, are three tejeda tissue fragments 0.3 to 0.6 cm. Totally submitted - one cassette. Specimen B: Received in formalin labeled esophagus biopsy, are five tejeda tissue fragments 0.3 to 0.4 cm. Totally submitted - one cassette. (RAD:djf) Electronically Signed by: Caitlyn Bonner D.O.
[2017-04-12 16:18] LABS: Nucleated Cel,Peritoneal Fluid 28 /cumm; RBC,Peritoneal Fluid < 50000 /cumm
[2017-04-12 16:19] LABS: Neutrophils,Peritoneal Fluid 1 %
--- NOTE | 2017-04-12 16:40 | Nephrology Progress Note ---
Subjective Patient information: Note initiated : 04/12/17 at 4:37 pm Service Date, if different from initiated Date: [] Patient: Bianka Camacho 27 y/o F admitted on 04/08/17 for High Blood Sugar. Chief Complaint: [] Principal diagnosis: pD PERIONITIS Interval history: no new issues no more nausea and vomiting, tolerating po liquids no abdominal pain, fever will be discharged today Pertinent ROS: as above Objective - Vital Signs Vital signs: Vital Signs Temp Pulse Resp BP BP Pulse Ox 04/12/17 15:26 97.8 F 18 131/88 99 04/12/17 11:43 98.1 F 16 121/84 97 04/12/17 10:24 98.3 F 04/12/17 07:06 80 16 97 04/12/17 07:05 98.4 F 16 132/82 97 04/12/17 04:00 98.4 F 90 14 128/84 97 04/11/17 23:10 98.4 F 93 H 14 119/76 92 04/11/17 19:38 98.3 F 99 H 14 157/97 97 Intake and Output 04/12/17 04/12/17 04/12/17 05:59 13:59 21:59 Intake Total 0 / 0 120 / 120 Balance 0 / 0 120 / 120 Intake: Oral 0 / 0 120 / 120 Other: Meal Lunch Percent of Meal Consumed 50% Feeding Ability Independent # Voids 1 1 Weight 161 lb Patient Weight 04/13/17 05:59 Weight 161 lb Intake & Output: Intake & Output 04/12/17 04/12/17 04/12/17 05:59 13:59 21:59 Intake Total 0 / 0 120 / 120 Balance 0 / 0 120 / 120 Weight 161 lb Intake: Oral 0 / 0 120 / 120 Other: Meal Lunch Percent of Meal Consumed 50% Feeding Ability Independent # Voids 1 1 - General Appearance General appearance: appears started age EENT: mucous membranes moist Neck: no JVD Respiratory: clear Cardiology: no rub, normal S1, normal S2 Gastrointestinal: no tenderness, no guarding Integumentary: no rash, warm and dry Neurologic: no focal deficit, alert and oriented x3 Musculoskeletal: no deformities, no erythema Psychiatric: mood/affect appropriate - Lab 04/12/17 05:30 04/12/17 05:30 Most recent lab results Calcium 7.7 mg/dl (8.6-10.4) L 04/12/17 05:30 Phosphorus 4.3 mg/dL (2.7-4.5) 04/12/17 05:30 Magnesium 1.6 mg/dL (1.6-2.5) 04/12/17 05:30 Assessment and Plan (1) ESRD (end stage renal disease) on dialysis Patient will be discharged today she willr esume home PD she does have culture negative peritonitis and she will do IP vanc very 3-5 days based on random level, discussed with the nurse and pt and oral cipro she will call if anyc oncerns PD nurse has retrained the pt and trained her as well for doing IP antibiotics I have requested her help her given her eyesight concerns will closely monitor Status: Acute (2) ESRD on peritoneal dialysis Status: Acute
--- NOTE | 2017-04-16 08:30 | EGD Procedure Note ---
EGD Procedure Notes - Procedure Information Patient information: Note initiated : 04/16/17 at 8:28 am Service Date: 04/08/17 Patient: Bianka Camacho 27 y/o F admitted on 04/08/17 for High Blood Sugar. Nausea and vomiting. Pre-op diagnosis general: Nausea and vomiting. Dysphagia. Abdominal pain. Post-Op Diagnosis general: Severe ulcerative reflux esophagitis. Gastritis. Functional vomiting. Procedure Narrative: The procedure, alternatives and risks were discussed with the patient and the patient's questions were answered. With intravenous sedation, the Olympus video endoscope was introduced into the esophagus. The esophagus, stomach, and duodenum were examined sequentially. There were ulcers in throughout the esophagus. There was no hiatal hernia. There were rare antral erosions, which were biopsied. The gastric mucosa, antrum , pyloric ring and duodenum were otherwise normal. The scope was withdrawn. Assessment: Severe ulcerative reflux esophagitis. Gastritis. Functional vomiting. Recommend aggressive control of functional vomiting with nortriptyline 10mg each evening. Increase PPI to omeprazole 40mg twice daily.
== END 2017-04-12 15:42 | disposition home or self-care (01) | DRG 73 ==
LOC: MEDSUR 18:18
PROVIDERS: ADMIT Internal Medicine; ATTEND Internal Medicine